=== PATIENT | female | born 1930 | race African-American/Black ===

== ENCOUNTER 2018-04-26 11:43 | Inpatient (IN) | payer MEDICARE, BC ==
--- NOTE | 2018-04-26 12:14 | CT ---
CT BRAIN WITHOUT CONTRAST: History: Level I stroke alert. Right sided weakness. Confusion. FINDINGS: Comparison is made with exam of 08-29-12. There are changes of encephalomalacia in the right frontal lobe and the left parietal lobe. Dystrophi c calcifications are seen in the right frontal lobe. The ventricular size is appropriate the basilar cisterns are patent. There are changes of cortical atrophy and chronic small ischemic disease. No hunter dence of acute infarct, hemorrhage, midline shift or abnormal extraaxial fluid collections are seen. The bony calvarium is intact. There is an airfluid level in the left maxillary sinus indicative of an acute maxillary sinusitis. IMPRESSION: 1. No CT evidence of acute intracranial process. 2. Findings discussed over the telephone with Emergency Department physician, Dr. Finch at 11:53 a .m. POS: [facility]
[2018-04-26 12:49] LABS: Lactate 3.44 mmol/L (0.50-2.20)
[2018-04-26 12:52] LABS: #Basophils 0.1 thou/uL (0.0-0.2); #Eosinphils 0.7 thou/uL (0.0-0.7); #Lymphocytes 1.9 thou/uL (1.20-3.40); #Monocytes 0.3 thou/uL (0.11-0.59); #Neutrophils 3.7 thou/uL (1.40-6.50); %Basophils 1.3 % (0.0-1.0); %Eosinophils 10.2 % (0.0-10.0); %Monocytes 4.4 % (0.0-10.0); Hemoglobin 12.9 g/dL (12.0-16.0); Mean Corpuscular HGB CONC 31.3 g/dL (32.0-36.0); Mean Corpuscular Hemoglobin 28.8 pg (27.0-31.0); Mean Corpuscular Volume 92.1 fL (78.0-98.0); Mean Platelet Volume 8.5 fL (7.4-10.4); Platelet Count 140 thou/uL (130-400); Red Blood Cell (RBC) Count 4.47 mill/uL (4.20-5.40); White Blood Cell (WBC) Count 6.7 thou/uL (4.8-10.8)
[2018-04-26 13:05] LABS: PTT 31.9 SEC (22.9-36.1)
[2018-04-26 13:06] LABS: INR-International Normal Ratio 1.1; Prothrombin Time 13.8 SEC (12.0-14.7)
[2018-04-26 13:14] LABS: ALT (SGPT) 10 U/L (8-55); AST (SGOT) 13 U/L (5-34); Albumin 3.2 g/dL (3.4-4.8); Alkaline Phosphatase 58 U/L (40-150); Anion Gap 13 mmol/L (10-20); BUN (Urea Nitrogen) 20 mg/dL (9.8-20.1); Bilirubin, Total 0.4 mg/dL (0.2-1.2); Calc. Creatinine Clearance 0 mL/min (70-130); Calcium 10.3 mg/dL (7.8-10.44); Carbon Dioxide 27 mmol/L (23-31); Chloride 104 mmol/L (98-107); Estimated GFR-MDRD 50; Globulin 3.2 g/dL (2.4-3.5); Glucose 104 mg/dL (83-110); Protein, Total 6.4 g/dL (6.0-8.3); Sodium 140 mmol/L (136-145)
[2018-04-26 13:15] LABS: Acetaminophen Less than 6.0 mcg/mL (10.0-30.0); Alcohol Less than 10 mg/dL (Less than 10); Salicylate Less than 8.0 mg/dL (15.0-30.0)
--- NOTE | 2018-04-26 13:16 | RAD ---
PORTABLE CHEST 1 VIEW: DATE: 04/26/2018. TIME: 1:06 p.m. History Cough. FINDINGS: The heart size is borderline. The aorta is tortuous. No focal areas of consolidation, pneumothorax, anant pulmonary edema, or pleural effusions are seen. There are degenerative changes in the spine. IMPRESSION: No acute process. POS: WOOD
[2018-04-26 13:27] LABS: Bilirubin Negative (Negative); Blood, Urine Trace (Negative); Clarity CLEAR (Clear); Glucose, Urine (Dipstick) Negative (Negative); Leukocyte Negative (Negative); Nitrite Negative (Negative); Protein, Urine (Dipstick) Negative (Neg-Trace); Specific Gravity, Urine 1.038 (1.002-1.036); Urobilinogen 0.2 mg/dL (0.2-1.0)
[2018-04-26 13:32] LABS: Bacteria/HPF None Seen HPF (None Seen); Hyaline Casts/LPF 0-3 HYALINE CAST LPF (0-3 Hyaline); Pathc Cast-AUWi Flag 0.43 (0-2.49); RBC/HPF 0-3 HPF (0-3); Squamous Epithelial 0-3 HPF (0-3); WBC/HPF 0-3 HPF (0-3)
--- NOTE | 2018-04-26 13:33 | CT ---
CT ANGIO HEAD WITH IV CONTRAST AND 3D POSTPROCESSING CT ANGIO NECK WITH IV CONTRAST AND 3D POSTPROCESSING: Date: 04/26/18 HISTORY: Level I stroke, right side weakness. FINDINGS: There is atherosclerotic plaque in the intra and extracranial carotid and vertebrobasilar systems. No aneurysm or major branch occlusion is seen in either side. There is 40% stenosis at the origin of th e right ICA and 45% stenosis at the origin of the left ICA. High grade stenosis is seen at the origin of the left vertebral artery. Low density thyroid nodules are noted. The visualized lung hinojosa are clear. An air fluid level is se en in the left maxillary sinus, consistent with acute left maxillary sinusitis. IMPRESSION: 1. Atherosclerotic vascular disease with 40% stenosis at the origin of the right ICA and 45% stenosi s at the origin of the left ICA, and high grade stenosis at the origin of the left vertebral artery. 2. No evidence of aneurysm or major branch occlusion. Discussed over the telephone with Dr. Perfecto Panchal at 1238 hours. CODE CR. POS: [facility]
[2018-04-26 13:34] LABS: Renal Epithelial None Seen HPF (0-3); Transitional Epithelial NONE SEEN HPF (0-3)
[2018-04-26 13:37] LABS: Amphetamine Not Detected (NotDetected); Barbiturates Screen Not Detected (NotDetected); Benzodiazepine Screen Not Detected (NotDetected); Cocaine Metabolite Screen Not Detected (NotDetected); Medtox Control Line Valid? VALID (VALID); Medtox Reader # READER 4; Methadone Not Detected (NotDetected); Methamphetamine Not Detected (NotDetected); Opiate Screen Not Detected (NotDetected); Oxycodone Screen Not Detected (NotDetected); Phencyclidine (PCP) Not Detected (NotDetected); THC/Cannabinoid Screen Not Detected (NotDetected); Tricyclic Screen Not Detected (NotDetected)
[2018-04-26] MEDS ORDERED: ISOVUE-370 76%-LOCM 1 ML ONE (15:04)
--- NOTE | 2018-04-26 15:26 | HP ---
PRIMARY CARE PHYSICIAN: Dr. Jonny Fountain at [facility]. REASON FOR ADMISSION: Acute encephalopathy. HISTORY OF PRESENT ILLNESS: An 87-year-old female, who has underlying history of hypertension, diabetes type 2, as well as previous history of CVA and brain aneurysm, who presented to emergency room with acute onset of altered mental status. The patient woke up this morning. At that time, she was able to do all her routine activity, but around 11 a.m., the patient all of suddenly started less responsive. The patient has caregiver and subsequently, the patient daughter was called and the patient was brought to emergency room for evaluation. Stroke alert was initiated in the emergency room. The patient had CT angiography of the head and neck and CT brain, which did not show any aneurysm or major branch occlusion. There was only carotid stenosis 40% in the right and 45% on the left. There was high-grade stenosis at the origin of the left vertebral artery. CT brain did not show any acute stroke. The patient was not a candidate for any kind of intervention in the emergency room. When I saw this patient, at that time, the patient was hypertensive. She was globally weak. She was resistant to opening her eyes. She was not following any command. She is not talking. The patient did not have any chest pain, palpitation, shortness of breath, UTI symptoms, constipation, diarrhea, abdominal pain. She did not have any headache. REVIEW OF SYSTEMS: All review of system tried to review with the patient, but unable to review at this point because of encephalopathy. PAST MEDICAL HISTORY: Hypertension, diabetes type 2, history of brain aneurysm, but unable to identify with CT angiography of the head and neck, dyslipidemia, and history of CVA. PAST SURGICAL HISTORY: Reviewed and negative. PAST PSYCHIATRIC HISTORY: Reviewed and negative. SOCIAL HISTORY: The patient lives at home. The patient has caregiver at home. No history of tobacco, alcohol, or illicit drug abuse. FAMILY HISTORY: No family history of coronary artery disease, stroke, or cancer. ALLERGIES: NO KNOWN DRUG ALLERGIES. CURRENT HOME MEDICATIONS: The patient's family member did not bring all her medication so unable to review at this point. EMERGENCY ROOM COURSE: Reviewed. PHYSICAL EXAMINATION: VITAL SIGNS: Currently blood pressure elevated to 197/87, pulse 74, respiratory rate 20, temperature 98.0, saturation 96% on room air. Weight 79.3 kg. GENERAL: The patient is currently unresponsive. Whenever I tried to open her eyes, she is making resistance with eye lid to close her eye. She is globally weak. She is not able to hold her any extremity in air. She is hypertensive. HEENT: Normocephalic, atraumatic. EYES; the patient is resisting to open her eyes, so unable to assess at this point. ENT; oropharynx within normal limits. Moist mucous membranes. No oral lesion. No pharyngeal erythema. No exudate. Face symmetrical without any facial droop. NECK: No JVD. No thyromegaly. No carotid bruit. No meningeal signs of irritation. LUNGS: Clear to auscultation without any rhonchi or rales. CARDIAC: S1 and S2 regular without any murmur. No gallop. No rub. ABDOMEN: Soft. Bowel sounds present. Nontender. Nondistended. No organomegaly. No mass. No suprapubic tenderness. BACK: Unremarkable. No CVA tenderness. EXTREMITIES: Upper extremities; passive movement of all joints are normal. Lower extremity; passive movement of all joints are normal. NEUROLOGIC: Unable to examine in detail neurologically, because the patient is unresponsive. She withdraws to painful stimuli in all four extremity. She is not able to keep any extremity in air. She is resisting to open her eyelid as well. SKIN: No skin rash. PSYCHIATRIC: Unable to assess at this point. SIGNIFICANT LABORATORY DATA: EKG showing normal sinus rhythm, nonspecific ST-T changes. CT of the head and neck angiography showing atherosclerosis of the right ICA of 40% and left ICA of 45%. High-grade stenosis at left vertebral artery origin. No aneurysm. CT brain based on my review, no acute intracranial process. Chest x-ray based on my review, no acute cardiopulmonary process. CBC; WBC 6.7, hemoglobin 12.9, platelets 140. INR 1.1. BMP; sodium 140, potassium 4.0, chloride 104, carbon dioxide 27, BUN 20, creatinine 1.23, glucose 104, calcium 10.3. LFT; AST 13, ALT 10, alkaline phosphatase 58, albumin 3.2. Troponin less than 0.010. Urinalysis unremarkable. Urine drug screen negative. Serum drug screen negative. ASSESSMENT AND PLAN: 1. Acute encephalopathy, etiology uncertain. The patient is hypertensive. Differential diagnosis is hypertensive encephalopathy. The patient does not have any focal deficit on one side or other, at this point, based on examination, but stroke cannot be entirely excluded. Current CT head and neck angiography and CT brain are not showing any acute process. The patient will need more investigation. The patient does have high-grade stenosis at the origin of left vertebral artery so, suspecting brainstem or posterior circulation stroke. At this point for more investigation, the patient will need admission. We will do Neurology consultation. MRI brain will be obtained. Echocardiography will be obtained. The patient will be treated with aspirin per rectally until the patient able to take p.o., and we will try to control her blood pressure around 170 to 180s. We will closely monitor on Stroke floor. We will do neuro check every 4 hours. Further investigation will defer to Neurology as well. If the patient's condition does not improve, then we will consider doing an EEG as well. 2. Diabetes, type 2. We will continue with insulin as per sliding scale protocol. Diabetic diet will be given when the patient is more alert and able to take p.o. We will also consult Speech Therapy for speech evaluation if needed, and we will also evaluate for bedside swallow. 3. Hypertension with hypertensive urgency. Currently, blood pressure is significantly elevated. We will try to control blood pressure around 170 to 180s. We will use p.r.n. hydralazine and labetalol. 4. Dyslipidemia. We will check lipid profile and start Lipitor 40 mg p.o. at bedtime. 5. Deep venous thrombosis prophylaxis. Lovenox 40 mg subcu daily. 6. GI prophylaxis. Pepcid 20 mg IV b.i.d. 7. Carotid stenosis. The patient does have mild carotid stenosis, which will require aspirin, statin therapy, and blood pressure control. CODE STATUS: The patient is full code. The patient's daughter is surrogate decision maker. DISPOSITION PLAN: Based on clinical course, we are expecting the patient's stay in the hospital more than two midnights. Plan of care discussed with the family member at bedside in detail. Job ID: [id number]
[2018-04-26 16:19] LABS: Lactic Acid 3.1 mmol/L (0.5-2.2)
[2018-04-26] MEDS ORDERED: Artificial Tear Sol 15 ML BOT EA EYE PRN (16:37)
[2018-04-26] MEDS ORDERED: Bisacodyl 10 MG SUPP PR PRN (16:37)
[2018-04-26] MEDS ORDERED: Dextrose 50% Abboject 50 ML SYRINGE SLOW IVP PRN (16:37)
[2018-04-26] MEDS ORDERED: Ondansetron PF 4 MG/2 ML Vial IVP PRN (16:37)
[2018-04-26] MEDS ORDERED: Acetaminophen 650 MG Suppository PR PRN (16:37)
[2018-04-26] MEDS ORDERED: Acetaminophen 325 MG TAB PO PRN (16:37)
[2018-04-26] MEDS ORDERED: Dextrose 5% in Water 1,000 ML IV PRN (16:37)
[2018-04-26] MEDS ORDERED: Eucerin (Mineral Oil/Petrolatum,White) 30 gm Jar TOP PRN (16:37)
[2018-04-26] MEDS ORDERED: Diabetic Tussin 200 MG/10 ML UDCUP PO PRN (16:37)
[2018-04-26] MEDS ORDERED: Ondansetron ODT 4 MG TAB PO PRN (16:37)
[2018-04-26] MEDS ORDERED: Loperamide HCl 2 MG CAP PO PRN (16:37)
[2018-04-26] MEDS ORDERED: Sodium Chloride 0.65% Nasal 44 ML BOT EA NARE PRN (16:37)
[2018-04-26] MEDS ORDERED: Bisacodyl 5 MG TAB PO PRN (16:37)
[2018-04-26] MEDS: hydrALAZINE 20 MG/ML VIAL SLOW IVP PRN (17:06)
[2018-04-26] MEDS: HumaLOG 300 UNITS/3 ML VIAL SC PRN ×2 (18:27→21:33)
[2018-04-26] MEDS: Labetalol HCl 100 MG/20 ML VIAL SLOW IVP PRN (20:13)
[2018-04-26] MEDS ORDERED: Atorvastatin Calcium 40 MG TAB PO SCH (21:00)
[2018-04-26] MEDS ORDERED: Famotidine/PF 20 mg/2ml Vial SLOW IVP SCH (21:00)
--- NOTE | 2018-04-26 21:07 | MRI ---
MRI OF BRAIN 04/26/18 PROVIDED CLINICAL HISTORY: Stroke. FINDINGS: Correlation is made with the CT examination dated 04/26/18. Prominent areas of encephalomalacia involving the right frontal and left temporo-occipital regions ar e again demonstrated with ex vacuo dilatation of the adjacent lateral ventricles in these regions. Th ere is extensive chronic microvascular white matter ischemic change predominantly involving the cereb ral hemispheric white matter. There is restricted diffusion seen involving the cerebellar vermis region. No additional restricted d iffusion is evident. Foci of signal loss on the gradient echo images within the region of restricted diffusion may reflect petechial hemorrhage. No additional intracranial hemorrhage is evident. Appropr iate flow voids are seen within the major intracranial vessels. The extracranial soft tissue and calv arial marrow signal demonstrate no acute abnormality. IMPRESSION: 1. Restricted diffusion compatible with recent infarction involving the cerebellum. Associated p etechial hemorrhage may be present. Follow up CT recommended. Discussed with patient's nurse, Lucia rosas, at 9:45 AM 04/27/2018. 2. Extensive chronic change as described. POS: [facility]
--- NOTE | 2018-04-26 21:15 | CON ---
DATE OF CONSULTATION: 04/26/2018 NEUROLOGY CONSULTATION CONSULTING PHYSICIAN: Hospitalist Service. IMPRESSION: Acute encephalopathy, possibly secondary to her hypertension. PLAN: Address blood pressure issues and monitor clinical course. HISTORY OF PRESENT ILLNESS: Ms. Mccauley is an 87-year-old black female with a known history of hypertension and diabetes. She usually gets around the house with the use of a walker. She can feed herself, but requires assistance with bathing and dressing. She has some degree of dementia, albeit the family plays it down a bit. She has had a tremor in her hands now for some time as well. She got up this morning and was not acting appropriate to her usual level of alertness. They called for an ambulance and she was brought into the ER. She had a CT and CTA done. There was some 40% stenosis of the carotids bilaterally, but nothing remarkable was found. Otherwise, her laboratory studies showed normal white count and chemistry panel other than mildly elevated blood glucose. Her urine was clear and her tox screen was also negative. She did not take any [id number] medications or sedatives last evening. PAST MEDICAL HISTORY: As listed above. ALLERGIES: NONE. SOCIAL HISTORY: No alcohol use. FAMILY HISTORY: Noncontributory. REVIEW OF SYSTEMS: Unobtainable. PHYSICAL EXAMINATION: VITAL SIGNS: Blood pressure in the 230/110 range. She is afebrile. HEENT: Pupils are 2 mm, nonreactive. Conjunctivae clear. Oropharynx is moist. NECK: Supple. EXTREMITIES: No cyanosis or edema. NEUROLOGIC: She will partially open her eyes and does some moaning, but I could not get any intelligible speech out of her and could not get her to follow any commands. Cranial nerve exam did not show any facial asymmetry or deviation of the eyes. Motor exam showed antigravity strength in both upper extremities. She had some rhythmic flexion-extension tremor in both hands, the tone appeared to be normal though. She localized to stimulation. Plantar responses were mute and gait is not testable. SUMMARY: This is an elderly lady who presents with alteration of mental status, so far there is no evidence of any infection or metabolic abnormalities. CT does not show any acute structural cause. The hypertension could be a factor. Otherwise, she might have suffered a stroke in a region that would not alter her physical exam, but other than the mental status, I would continue current management and reassess tomorrow. Job ID: [id number]
[2018-04-27 06:01] LABS: #Lymphocytes 1.2 thou/uL (1.20-3.40); #Monocytes 0.3 thou/uL (0.11-0.59); %Basophils 0.2 % (0.0-1.0); %Eosinophils 0.1 % (0.0-10.0); %Lymphocytes 7.9 % (21.0-51.0); %Monocytes 2.1 % (0.0-10.0); %Neutrophils 89.7 % (42.0-75.0); Hemoglobin 14.2 g/dL (12.0-16.0); Mean Corpuscular HGB CONC 31.8 g/dL (32.0-36.0); Mean Corpuscular Hemoglobin 29.1 pg (27.0-31.0); Mean Corpuscular Volume 91.3 fL (78.0-98.0); Mean Platelet Volume 8.9 fL (7.4-10.4); Platelet Count 162 thou/uL (130-400); RBC Distribution Width 13.1 % (11.5-14.5); Red Blood Cell (RBC) Count 4.89 mill/uL (4.20-5.40); White Blood Cell (WBC) Count 15.6 thou/uL (4.8-10.8)
[2018-04-27 06:33] LABS: BUN (Urea Nitrogen) 21 mg/dL (9.8-20.1); Calc. Creatinine Clearance 40 mL/min (70-130); Calcium 10.8 mg/dL (7.8-10.44); Carbon Dioxide 16 mmol/L (23-31); Cardiac Risk 7.6 (Less than 4.5); Chloride 106 mmol/L (98-107); Cholesterol 404 mg/dl (< 200 Desired); Estimated GFR-MDRD 49; Glucose 165 mg/dL (83-110); HDL Cholesterol 53 mg/dL (>60 Neg Risk); LDL Cholesterol, Calculated 320 mg/dL; Potassium 4.6 mmol/L (3.5-5.1); Sodium 136 mmol/L (136-145); Triglycerides 156 mg/dL (Less than 150)
[2018-04-27] MEDS: HumaLOG 300 UNITS/3 ML VIAL SC PRN (06:38)
[2018-04-27 06:46] LABS: Anion Gap 19 mmol/L (10-20)
[2018-04-27] MEDS ORDERED: Enoxaparin Sodium 40 MG/0.4 ML SYRINGE SC SCH (09:00)
[2018-04-27] MEDS ORDERED: Non-Formulary Item 1 EACH (Rosuvastatin Calcium [Crestor] 40 MG) PO SCH (09:00)
[2018-04-27] MEDS ORDERED: Aspirin 300 MG Suppository PR SCH (09:00)
[2018-04-27] MEDS ORDERED: Non-Formulary Item 1 EACH (Lisinopril [Zestril] 40 MG) PO SCH (09:00)
[2018-04-27] MEDS ORDERED: Aspirin 325 MG TAB PO SCH (09:00)
[2018-04-27] MEDS: Amlodipine 10 MG TAB PO SCH (09:06)
[2018-04-27] MEDS: metFORMIN 500 MG TAB PO SCH ×2 (09:06→19:00)
[2018-04-27] MEDS: Oxybutynin 5 MG TAB PO SCH (09:07)
[2018-04-27] MEDS: Lisinopril 20 MG TAB PO SCH (09:07)
[2018-04-27] MEDS: Metoprolol Tartrate 50 MG TAB PO SCH (09:07)
--- NOTE | 2018-04-27 11:10 | PDOC.PN ---
- Subjective Encounter Start Date: 04/27/18 Encounter Start Time: 07:30 -: old records requested/rev pt is keeping her eye closed, she randomly moves extremity, family present bedside - Objective Resuscitation Status - Order Detail: 04/26/18 14:41 Resuscitation Status Routine Resuscitation Status: FULL: Full Resuscitation MAR Reviewed: Yes Vital Signs & Weight: Vital Signs (12 hours) Temp Pulse Pulse Resp BP BP BP 04/27/18 09:57 164/77 H 04/27/18 09:07 185/84 H 04/27/18 09:06 102 H 04/27/18 08:03 91 188/90 H 04/27/18 07:38 99.0 F 102 H 16 198/98 H 04/27/18 03:57 98.4 F 100 156/86 H 04/27/18 03:05 156/86 H 04/27/18 00:13 97.8 F 93 16 181/89 H Pulse Ox 04/27/18 09:57 04/27/18 09:07 04/27/18 09:06 04/27/18 08:03 04/27/18 07:38 92 L 04/27/18 03:57 94 L 04/27/18 03:05 04/27/18 00:13 93 L Weight Weight 171 lb 4 oz Result Diagrams: 04/27/18 05:55 04/27/18 05:55 Additional Labs: Accuchecks 04/27/18 04/26/18 04/26/18 05:43 20:55 18:22 POC Glucose 181 H 255 H 268 H 04/26/18 11:48 POC Glucose 118 H Radiology Reviewed by me: Yes (MRI reviewed) EKG Reviewed by me: Yes (NSR) Phys Exam - Physical Examination Constitutional: NAD HEENT: moist MMs, sclera anicteric Neck: no JVD, supple Respiratory: no wheezing, no rales, no rhonchi Cardiovascular: RRR, no significant murmur, no rub Gastrointestinal: soft, non-tender, no distention, positive bowel sounds Musculoskeletal: no edema, pulses present Neurological: moves all 4 limbs Lymphatic: no nodes Psychiatric: normal affect Skin: no rash, normal turgor Dx/Plan (1) Cerebellar infarction Code(s): I63.9 - CEREBRAL INFARCTION, UNSPECIFIED Status: Acute (2) CKD (chronic kidney disease) stage 3, GFR 30-59 ml/min Code(s): N18.3 - CHRONIC KIDNEY DISEASE, STAGE 3 (MODERATE) Status: Chronic (3) Diabetes type 2, controlled Code(s): E11.9 - TYPE 2 DIABETES MELLITUS WITHOUT COMPLICATIONS Status: Chronic (4) Dyslipidemia Code(s): E78.5 - HYPERLIPIDEMIA, UNSPECIFIED Status: Chronic (5) Encephalopathy acute Code(s): G93.40 - ENCEPHALOPATHY, UNSPECIFIED Status: Acute (6) Hypertension Code(s): I10 - ESSENTIAL (PRIMARY) HYPERTENSION Status: Chronic - Plan cont current plan of care, plan discussed w/ family, PT/OT, social media specialist * home medication reconciled * if pt is not able to take by mouth, will consider dubhuff tube for nutrition and medication * will repeat CT brain again to rule out any H'ge * medication reviewed as below * symptomatic treatment * discussed with family * neurology recommendation noted. Review of Systems - Review of Systems Other: unable to review due to encephalopathy - Medications/Allergies Allergies/Adverse Reactions: Allergies Allergy/AdvReac Type Severity Reaction Status Date / Time No Known Drug Allergies Allergy Verified 04/26/18 17:42 Medications: Current Medications Acetaminophen (Tylenol) 650 mg PO Q4H PRN PRN Reason: Headache/Fever/Mild Pain (1-3) Acetaminophen (Tylenol) 650 mg ND Q4H PRN PRN Reason: Headache/Fever/Mild Pain (1-3) Amlodipine Besylate (Norvasc) 10 mg PO DAILY [facility] Last Admin: 04/27/18 09:06 Dose: Not Given Artificial Tears (Tears Renewed 15ml Bottle) 2 drop EA EYE PRN PRN PRN Reason: Dry Eyes Bisacodyl (Dulcolax) 10 mg ND DAILYPRN PRN PRN Reason: Constipation Bisacodyl (Dulcolax) 10 mg PO DAILYPRN PRN PRN Reason: Constipation Dextrose/Water (Dextrose 50%) 25 gm SLOW IVP PRN PRN PRN Reason: Hypoglycemia Famotidine (Pepcid) 20 mg SLOW IVP 2100 [facility] Last Admin: 04/26/18 20:11 Dose: 20 mg Glucagon (Glucagon) 1 mg IM PRN PRN PRN Reason: Hypoglycemia Guaifenesin (Robitussin Sf) 200 mg PO Q4H PRN PRN Reason: Cough Hydralazine HCl (Apresoline) 10 mg SLOW IVP Q4H PRN PRN Reason: SBP > 180 and HR < 70 Last Admin: 04/26/18 17:06 Dose: 10 mg Dextrose/Water (D5w) 1,000 mls @ 0 mls/hr IV .Q0M PRN PRN Reason: Hypoglycemia Insulin Human Lispro (Humalog) 0 units SC .BEDTIME SLIDING SC PRN PRN Reason: Bedtime Correctional Scale Last Admin: 04/26/18 21:33 Dose: 3 unit Insulin Human Lispro (Humalog) 0 units SC .MILD SLIDING SCALE PRN PRN Reason: Mild Correctional Scale Last Admin: 04/27/18 06:38 Dose: 2 unit Labetalol HCl (Normodyne) 20 mg SLOW IVP Q4H PRN PRN Reason: SBP > 180 and HR >/= 70 Last Admin: 04/26/18 20:13 Dose: 20 mg Lisinopril (Zestril) 40 mg PO DAILY [facility] Last Admin: 04/27/18 09:07 Dose: Not Given Loperamide HCl (Imodium) 2 mg PO PRN PRN PRN Reason: Diarrhea/Loose Stools Metformin HCl (Glucophage) 500 mg PO BID-[facility] Last Admin: 04/27/18 09:06 Dose: Not Given Metoprolol Tartrate (Lopressor) 50 mg PO DAILY [facility] Last Admin: 04/27/18 09:07 Dose: Not Given Mineral Oil/White Petrolatum (Eucerin Cream) 0 gm TOP BIDPRN PRN PRN Reason: Dry Skin Ondansetron HCl (Zofran Odt) 4 mg PO Q6H PRN PRN Reason: Nausea/Vomiting Ondansetron HCl (Zofran) 4 mg IVP Q6H PRN PRN Reason: Nausea/Vomiting Last Admin: 04/26/18 17:21 Dose: 4 mg Oxybutynin Chloride (Ditropan) 5 mg PO DAILY [facility] Last Admin: 04/27/18 09:07 Dose: Not Given Rosuvastatin Calcium (Crestor) 40 mg PO [facility] Sodium Chloride ([place] Nasal Aldrich 0.65%) 0 ml EA NARE QIDPRN PRN PRN Reason: Nasal Congestion Sodium Chloride (Flush - Normal Saline) 10 ml IVF PRN PRN PRN Reason: Saline Flush
[2018-04-27] MEDS: Labetalol HCl 100 MG/20 ML VIAL SLOW IVP PRN ×3 (12:35→21:21)
[2018-04-27] MEDS ORDERED: Labetalol HCl 100 MG/20 ML VIAL SLOW IVP SCH (13:00)
--- NOTE | 2018-04-27 13:30 | CT ---
CT BRAIN: Date: 04-27-18 Provided Clinical History: Comparison: CT brain 04-26-18 FINDINGS: There is interval development of parenchymal hematoma involving the central aspects of the cerebellum superiorly measuring approximately 5.1 cm. There is some effacement of the fourth ventricle with int raventricular extension not excluded into the fourth ventricle. The lateral ventricles are not change d in size. There is no shift of the midline structures. Additional significant interval change with r espect to the prior study is not apparent. IMPRESSION: 5.1 cm cerebellar parenchymal hematoma, new from the 04-26-18 CT examination. Findings indicted to Kendrick riggs, the patient's nurse, at 11:55 a.m. 04-27-18. Code CR POS: [facility]
[2018-04-27 13:32] LABS: INR-International Normal Ratio 1.1; PTT 33.4 SEC (22.9-36.1); Prothrombin Time 14.6 SEC (12.0-14.7)
--- NOTE | 2018-04-27 13:36 | PRG ---
DATE OF SERVICE: 04/27/2018 The patient is seen and examined again this afternoon at 12 p.m., entire family members were present at bedside and plan of care discussed with them as well. As the patient's condition was not improving since morning, we decided to repeat CT brain and second repeat CT scan this morning showing intracranial hemorrhage in cerebellum which we are suspecting from hypertension. This patient is not able to take any medication by mouth and she is still encephalopathic. We decided to discontinue aspirin rectally as well as aspirin and Lovenox for DVT prophylaxis. The patient's blood pressure was high at bedside and that is why labetalol IV push given. We decided to transfer this patient immediately to CCU and we are planning to start Cardene drip. Neurosurgery consultation placed and I spoke with Dr. Khan. He is going to review imaging and decide about any treatment options. Currently, next step is to transfer her to CCU. I spoke with the charge nurse in CCU to expedite bed assignment. Our goal is to keep systolic blood pressure around 120 given hemorrhagic CVA. Echocardiography was done earlier today and still result is pending. If the patient's condition does not improve, then we will consider putting Dobhoff tube for nutrition and medication. Plan of care extensively discussed with entire family members, who are upset and calmed down. Initially, family member requested to transfer her to [facility], but at this point for best interest of the patient, she is not safe enough to transfer there and she requires immediate transfer in care with Cardene drip. Most recent vital signs, blood pressure is 183/84. We will continue to give her labetalol until she gets bed in ICU. Job ID: [id number]
[2018-04-27 14:10] LABS: CKMB 3.6 ng/mL (0-6.6)
[2018-04-27] MEDS: niCARdipine HCl 25 MG in Sodium Chloride 0.9% 250 ML 240 ML IVPB SCH ×2 (14:38→20:06)
--- NOTE | 2018-04-27 20:16 | RAD ---
KUB: 04/27/18 HISTORY: Feeding tube placement. Dobhoff feeding tube is seen overlying the left upper quadrant and appears to be in the fundus region of the stomach on this view. Bowel gas pattern is nonobstructed. There are arthritic changes in the spine. IMPRESSION: Dobhoff feeding tube overlying the left upper quadrant of the abdomen. POS: [facility]
[2018-04-27] MEDS: Rosuvastatin 20 MG TAB PO SCH (21:21)
--- NOTE | 2018-04-27 22:14 | CON ---
DATE OF CONSULTATION: HISTORY OF PRESENT ILLNESS: Ms. Mccauley is an 87-year-old woman, who was admitted to [facility] yesterday, April 26 for sudden onset of altered mental status and right-sided weakness. CT scan initially performed showed no significant abnormality. An MRI was also then performed yesterday afternoon, which showed areas of restricted diffusion in the cerebellum likely indicating infarction and then a CT scan performed this morning revealed large bilateral hemispheric cerebellar hemorrhage likely representing conversion of infarct region. According to the Hospitalist Service and nursing staff, her mental status has not changed over the course of the last 24 hours, and for the CT scan from this morning, Neurosurgery was consulted at bedside. The patient is encephalopathic. She does not speak or answer questions nor make any specific noise that I can discern. She does localize pain quite briskly in all extremities and withdrawal to the lower extremities. She seems perhaps to follow commands with the left hand, though intermittently, more frequently does not follow than she does. Pupils are equal, round, and reactive to light. Extraocular movements are intact. It is important to note that on the CAT scan, she has ventriculomegaly, not just on today's exam, but on yesterday's as well. I had a lengthy discussion with the family at bedside that from her surgical perspective, it would not be recommended at least for this time for any posterior cerebellar decompression given the risks entailed in doing so particularly with her advanced age of 87. I did make the recommendation that it could become necessary in life, they could have an external ventricular drain placed; though at this time, it is unnecessary. Neurosurgery's plan would be one of observation and repeat imaging in the morning to evaluate any change in her ventricular size that may preclude placing this catheter. All questions were answered. I would like to see her systolic pressures maintained below 160 and head of bed elevated at 30 degrees. We will follow up in the morning. Job ID: [id number]
[2018-04-28] MEDS: niCARdipine HCl 25 MG in Sodium Chloride 0.9% 250 ML 240 ML IVPB SCH ×4 (01:24→19:54)
[2018-04-28] MEDS: Labetalol HCl 100 MG/20 ML VIAL SLOW IVP PRN (01:25)
[2018-04-28] MEDS: HumaLOG 300 UNITS/3 ML VIAL SC PRN (06:34)
[2018-04-28] MEDS: Amlodipine 10 MG TAB PO SCH (08:18)
[2018-04-28] MEDS: Pantoprazole 40 MG VIAL IVP SCH (08:18)
[2018-04-28] MEDS: Lisinopril 20 MG TAB PO SCH (08:18)
[2018-04-28] MEDS: Metoprolol Tartrate 50 MG TAB PO SCH (08:18)
[2018-04-28] MEDS: metFORMIN 500 MG TAB PO SCH ×2 (08:18→18:41)
[2018-04-28] MEDS: Oxybutynin 5 MG TAB PO SCH (08:37)
[2018-04-28] MEDS ORDERED: Morphine 4 MG/ML VIAL ONE (09:29)
[2018-04-28] MEDS ORDERED: Lidocaine 1% w/Epinephrine 1:100K 20 ML VIAL ONE (09:30)
--- NOTE | 2018-04-28 10:42 | CON ---
DATE OF CONSULTATION: ICU CONSULTATION NOTE HISTORY OF PRESENT ILLNESS: This is an 87-year-old female, who is basically unresponsive. There is a daughter at the bedside. She tells me there are 5 sisters. She was admitted on the for mental status change. Prior to that, she was relatively active. CT head showed a posterior circulation bleed. The patient has known history of previous brain aneurysms. Family is quite aware. She has had a previous hemorrhage in the past. Normally, she seeks care with [facility]. PAST MEDICAL HISTORY: Apparently pertinent mainly for hypertension. PAST SURGICAL HISTORY: Previous surgeries from what we are told is none. SOCIAL HISTORY: Alcohol, none. Tobacco, none. MEDICATIONS: Medicines from home includes; 1. Diabetic medication includes Glucophage 500 twice a day. 2. Crestor 40. 3. Lopressor 50 once a day. 4. Zestril 40 mg once a day. 5. Tessalon Perles. 6. Norvasc 10. 7. Aspirin. ALLERGIES: NONE. REVIEW OF SYSTEMS: Otherwise unobtainable. PHYSICAL EXAMINATION: VITAL SIGNS: Saturations are 98% on room air. She has a feeding tube in place. Pulse 88, blood pressure 134/80, and respiratory rate 22. CHEST: Reveals no wheezing or crackles. CARDIAC: Normal S1 and S2. No gallops HEENT: Pupils are 2 mm, equal. IMAGING STUDIES: CT brain 5 cm cerebellar hematoma. LABORATORY DATA: Otherwise, blood sugar 176. White count 15,000, H and H are unremarkable. Lytes were normal. Chemistry profile shows creatinine 1.25. IMPRESSION: 1. Posterior cerebellar hemorrhage. 2. Advanced age. 3. Diabetes. 4. Hypertension. PLAN: Discussed with the daughter, who is present at the bedside. She is comfortable making the patient a DNR. She is on a Cardene drip, we will try and switch over to oral medication and discontinue Cardene. She can probably be transferred out of the ICU. She is a DNR. Await input from Neurosurgery. Pulmonary Critical Care will follow while in the ICU. This is a one-half hour critical time. Job ID: [id number]
--- NOTE | 2018-04-28 10:52 | PRG ---
DATE OF SERVICE: SUBJECTIVE: Ms. Mccauley today appears to have had some progressive neurologic change. Her CT scan from this morning is still significantly worse with large hemorrhage now within the 4th ventricle. She also has increased ventriculomegaly. I discussed with the daughter at bedside and recommended emergent external ventricular drain placement. She consents and agrees. We will move forward. Job ID: [id number]
--- NOTE | 2018-04-28 11:11 | CT ---
"PRELIMINARY REPORT/[facility]/EMERGENTY AFTER-HOURS PROCEDURE CT Head Without Contrast EXAM DATE/TIME: 04/28/2018 4:15 AM CLINICAL HISTORY: 87 years old, female; Condition or disease; Other: F. U stroke; Increased AMS; Patient HX: Previous C T and mri on pacs; F. U stroke; Increased AMS TECHNIQUE: Axial computed tomography images of the head/brain without contrast. COMPARISON: CT Brain WO Con 04/26/2018 11:48 AM FINDINGS: Brain: Interval development of large, bilateral cerebellar hemorrhages, with surrounding edema, exten ding into and distending the 4th ventricle, cerebral aqueduct, and layering in the posterior horns of the lateral ventricles. There is also subrachnoid hemorrhage about the basilar cisterns and in bilateral parietal sulci. Right anterior frontal subdural collection demontrates acute hemorrhagic co mponent, new vs prior, measuring 11 mm in transverse dimension. Stable right frontal and left posteri or parietal foci of encephalomalacia. Ventricles: Progression of hydrocephalus vs prior exam. Bones/joints: No acute fracture. Sinuses: No acute sinusitis. Mastoid air cells: No mastoid effusion. Soft tissues: No acute pathology. IMPRESSION: Interval development of cerebellar, subdural, subarachnoid, and intraventricular hemorrhages vs prior . Progression of hydrocephalus vs prior exam. THIS REPORT CONTAINS FINDINGS THAT MAY BE CRITICAL TO PATIENT CARE. The findings were verbally commun icated via telephone conference with VASILE Hilton by Dr. Lopez on 04/28/2018 5:26 AM DATA CENTER PROJECT MANAGER. The results were acknowledged and understood. NUHA ALARCON | Preliminary Radiology Report Thank you for allowing us to participate in the care of your patient. Dictated and Authenticated by: Gale Lopez MD 04/28/2018 5:27 AM Central Time ([place] & [place]) FINAL INTERPRETATION CT HEAD WITHOUT CONTRAST: 04/28/2018 HISTORY: Intracranial hemorrhage. COMPARISON: 04/27/2018 TECHNIQUE: Axial CT imaging at 5 mm intervals, from the vertex through the skull base, without contrast. FINDINGS: The imaged paranasal sinuses/mastoid air cells are well aerated. No displaced calvarial fracture. There is a large intraaxial hemorrhage centered in the posterior midline cerebellum, with extension i nto the right and left cerebellar hemispheres, measuring approximately 6.2 cm in transverse dimension and 3.7 cm in AP dimension, increased in size when compared to 04/27/2018, at which time it measured approximately 5.1 x 2.5 cm. There appears to be direct extension of this hemorrhage into the fourth ventricle. There is significant new intraventricular hemorrhage within the posterior horns of the b ilateral lateral ventricles. There is interval development of worsening bilateral enlargement of the lateral ventricles and third ventricle, evidence of worsening/new obstructive hydrocephalus, and the re is new hemorrhage within the third ventricle. There is worsening periventricular hypodensity, sug gesting a degree of transependymal flow of CSF. There is worsening mass effect at the level of the foramen magnum, with ventral displacement of the b rainstem, consistent with worsening mass effect from the above described hemorrhage. New diffuse subarachnoid hemorrhage noted in the region of the temporal lobes bilaterally. IMPRESSION: Enlarging intraaxial hemorrhage centered in the midline cerebellum, with worsening/new intraventricul ar extension and mass effect on the brainstem at the foramen magnum with obstructive hydrocephalus an d transependymal flow of cerebrospinal fluid. New subarachnoid hemorrhage. I agree with the preliminary [facility] report. Results called to JENNIE Dunlap by the [facility] radiologist. This case was also discussed with [facility] by Dr. Macias on the morning of 04/28/2018. CODE CR POS: [facility]"
--- NOTE | 2018-04-28 12:02 | PRG ---
DATE OF SERVICE: 04/28/2018 SUBJECTIVE: Ms. Mccauley is an 87-year-old female admitted for weakness. She was on the stroke floor with a diagnosis of ischemic posterior fossa stroke. We were contacted yesterday by the Hospitalist Service for a change in mental status, where a subsequent CT scan revealed the presence of posterior fossa hemorrhage with intraventricular extension. She was transferred to the ICU. Today, she is evaluated both from an imaging and clinical perspective, both of which show a decline. She is far less responsive today. Her CT examination reveals a ventriculomegaly due to hydrocephalus. Ventriculostomy was discussed with the family and has been placed without incident. I had a lengthy discussion with the family members as well to discuss with them her current diagnosis as well as current plan of care with respect to the EVD. The plan at this point in time from a neurosurgical perspective will be ventriculostomy alone. She will need to continue to undergo risk stratification for stroke and appropriate blood pressure management through the Hospitalist and Critical Care Team. Job ID: [id number]
--- NOTE | 2018-04-28 13:15 | PDOC.PN ---
- Subjective Encounter Start Date: 04/28/18 Encounter Start Time: 09:00 -: Sluggish response to pain.. - Objective Resuscitation Status - Order Detail: 04/26/18 14:41 Resuscitation Status Routine Resuscitation Status: FULL: Full Resuscitation Vital Signs & Weight: Vital Signs (12 hours) Temp Pulse BP Pulse Ox 04/28/18 08:57 99 04/28/18 08:18 115 H 129/63 04/28/18 04:00 99 F 04/28/18 01:25 115 H 161/72 H Weight Admit Weight 171 lb 4 oz Weight 171 lb 15.369 oz Most Recent Monitor Data Heart Rate from ECG 80 NIBP 119/76 NIBP BP-Mean 90 Respiration from ECG 15 SpO2 96 I&O: 04/27/18 04/28/18 04/29/18 06:59 06:59 06:59 Intake Total 1020 Output Total 595 40 Balance 425 -40 Result Diagrams: 04/27/18 05:55 04/27/18 05:55 Additional Labs: Accuchecks 04/28/18 04/27/18 04/27/18 06:29 22:06 19:00 POC Glucose 176 H 163 H 175 H Phys Exam - Physical Examination Constitutional: NAD (Pupils equal with sluggish reaction to light..2mm) Neck: no JVD Respiratory: clear to auscultation bilateral Cardiovascular: RRR Gastrointestinal: soft Musculoskeletal: no edema Dx/Plan (1) Intracranial hemorrhage Code(s): I62.9 - NONTRAUMATIC INTRACRANIAL HEMORRHAGE, UNSPECIFIED Status: Acute Comment: Associated with infarct.. (2) CKD (chronic kidney disease) stage 3, GFR 30-59 ml/min Code(s): N18.3 - CHRONIC KIDNEY DISEASE, STAGE 3 (MODERATE) Status: Chronic (3) Diabetes type 2, controlled Code(s): E11.9 - TYPE 2 DIABETES MELLITUS WITHOUT COMPLICATIONS Status: Chronic (4) Hypertension Code(s): I10 - ESSENTIAL (PRIMARY) HYPERTENSION Status: Chronic - Plan -: Severe CVA with unresponsiveness. -: F/u with consultants. -: Continue supportive therapy.. * .
[2018-04-28] MEDS: Rosuvastatin 20 MG TAB PO SCH (19:54)
[2018-04-29] MEDS: HumaLOG 300 UNITS/3 ML VIAL SC PRN ×2 (06:24→17:27)
[2018-04-29] MEDS: metFORMIN 500 MG TAB PO SCH ×2 (07:34→17:26)
[2018-04-29] MEDS: Metoprolol Tartrate 50 MG TAB PO SCH (07:34)
[2018-04-29] MEDS: Pantoprazole 40 MG VIAL IVP SCH (07:35)
[2018-04-29] MEDS: Lisinopril 20 MG TAB PO SCH (07:35)
[2018-04-29] MEDS: Amlodipine 10 MG TAB PO SCH (07:35)
[2018-04-29 07:57] LABS: Anion Gap 12 mmol/L (10-20); BUN (Urea Nitrogen) 34 mg/dL (9.8-20.1); Calc. Creatinine Clearance 31 mL/min (70-130); Calcium 10.5 mg/dL (7.8-10.44); Carbon Dioxide 28 mmol/L (23-31); Chloride 106 mmol/L (98-107); Estimated GFR-MDRD 37; Glucose 172 mg/dL (83-110); Sodium 142 mmol/L (136-145)
--- NOTE | 2018-04-29 09:21 | PRG ---
DATE OF SERVICE: 04/29/2018 SUBJECTIVE: Jaycee Mccauley this morning remains markedly weak, but does move some of her right side. OBJECTIVE: VITAL SIGNS: Blood pressure 148/84, pulse 105, temperature is 98, respiratory rate 20, sats are 98%. CHEST: Decreased breath sounds. No wheezing. CARDIAC: Normal S1, S2. No gallops. ABDOMEN: No masses. LABORATORY DATA: Creatinine 1.59. She has a feeding tube in place going at 40 mL/hr. IMPRESSION: 1. Intracranial hemorrhage. ICPs about 2 to 3 as per the nurses. Hemorrhages in the cerebellum. 2. Posterior circulation hemorrhage. 3. Advanced age. 4. Hypertension. PLAN: Continue supportive care. Await input from Neurosurgery. Pulmonary will follow while on the ICU. PT, supportive care. Job ID: [id number]
--- NOTE | 2018-04-29 10:26 | RAD ---
PORTABLE FRONTAL CHEST RADIOGRAPH; Date: 04/29/18 COMPARISON: 08/29/12. HISTORY: Tachycardia. FINDINGS: There is a Dobbhoff feeding tube extending into the epigastric region to the left of midline. There i s no pneumothorax, pleural fluid, focal consolidation, or alveolar edema. IMPRESSION: Dobbhoff feeding tube in place. No focal consolidation or alveolar edema. POS: [facility]
[2018-04-29] MEDS: Oxybutynin 5 MG TAB PO SCH (10:39)
--- NOTE | 2018-04-29 10:41 | PDOC.PN ---
- Subjective Encounter Start Date: 04/29/18 Encounter Start Time: 10:50 -: More responsive today. - Objective Resuscitation Status - Order Detail: 04/26/18 14:41 Resuscitation Status Routine Resuscitation Status: FULL: Full Resuscitation Vital Signs & Weight: Vital Signs (12 hours) Temp 04/29/18 08:00 98.2 F 04/29/18 04:00 98.4 F 04/29/18 01:00 98.0 F 04/29/18 00:00 98.2 F Weight Admit Weight 171 lb 4 oz Weight 172 lb 13.478 oz Most Recent Monitor Data Heart Rate from ECG 97 NIBP 153/75 NIBP BP-Mean 101 Respiration from ECG 27 SpO2 100 I&O: 04/28/18 04/29/18 04/30/18 06:59 06:59 06:59 Intake Total 1020 1875 240 Output Total 595 588 116 Balance 425 1287 124 Result Diagrams: 04/27/18 05:55 04/29/18 07:29 Additional Labs: Accuchecks 04/29/18 04/28/18 04/28/18 06:23 22:05 17:31 POC Glucose 164 H 146 H 168 H Phys Exam - Physical Examination Constitutional: NAD Keeps eyes open, with upward gaze. Neck: no JVD Respiratory: no rales Cardiovascular: RRR Gastrointestinal: soft Musculoskeletal: no edema not foolowing commands. Neurological: moves all 4 limbs (R better than left..) Dx/Plan (1) Intracranial hemorrhage Code(s): I62.9 - NONTRAUMATIC INTRACRANIAL HEMORRHAGE, UNSPECIFIED Status: Acute Comment: Associated with infarct.. (2) CKD (chronic kidney disease) stage 3, GFR 30-59 ml/min Code(s): N18.3 - CHRONIC KIDNEY DISEASE, STAGE 3 (MODERATE) Status: Chronic Comment: serum creat slightly higher... (3) Diabetes type 2, controlled Code(s): E11.9 - TYPE 2 DIABETES MELLITUS WITHOUT COMPLICATIONS Status: Chronic (4) Hypertension Code(s): I10 - ESSENTIAL (PRIMARY) HYPERTENSION Status: Chronic Comment: BP satisfactory.. - Plan -: Looks better today. -: Continue current therapy. -: f/u with consultants... * .
--- NOTE | 2018-04-29 11:43 | PRG ---
DATE OF SERVICE: 04/29/2018 SUBJECTIVE: Ms. Mccauley this morning seems to be somewhat improved from her status yesterday. She opens her eyes spontaneously, looks around the room, and localizes to pain. EVD continues to put out slightly blood-tinged CSF. We will keep the setting at 5 cm of water for now. She has been tachycardiac overnight, but seems to be trending back downward. Now, she is in the low 90s. We will continue to follow. Job ID: [id number]
--- NOTE | 2018-04-29 12:04 | PRG ---
DATE OF SERVICE: 04/29/2018 Ms. Mccauley remains in the ICU. She has had a ventriculostomy placed yesterday, which remains open and is draining bloody CSF. Her exam has improved back to her baseline in the couple of days prior, which was basically one of encephalopathy. She does open her eyes, but does not follow commands. She does make spontaneous movements. The plan will be to keep her in the ICU with ongoing drainage. Physical Therapy was about to see her when I left. I did meet with the family and updated them at the time of my visit. Job ID: [id number]
[2018-04-29] MEDS: hydrALAZINE 20 MG/ML VIAL SLOW IVP PRN ×2 (12:16→21:21)
[2018-04-29] MEDS: CEFAZOLIN 2 GM/50 ML-DEXTROSE 2 GM in Premix Bag 1 BAG IVPB SCH ×2 (13:31→21:21)
[2018-04-29] MEDS ORDERED: CEFAZOLIN 2 GM in Sodium Chloride 0.9% 100 ML IVPB SCH (14:00)
[2018-04-29 16:25] LABS: CKMB 3.9 ng/mL (0-6.6)
[2018-04-29 19:26] LABS: CKMB 3.8 ng/mL (0-6.6)
[2018-04-29] MEDS: Rosuvastatin 20 MG TAB PO SCH (19:53)
[2018-04-30] MEDS: hydrALAZINE 20 MG/ML VIAL SLOW IVP PRN (03:03)
[2018-04-30] MEDS: CEFAZOLIN 2 GM/50 ML-DEXTROSE 2 GM in Premix Bag 1 BAG IVPB SCH ×3 (05:30→21:16)
[2018-04-30] MEDS: HumaLOG 300 UNITS/3 ML VIAL SC PRN ×2 (06:32→15:45)
[2018-04-30] MEDS: Pantoprazole 40 MG VIAL IVP SCH (08:42)
[2018-04-30] MEDS: Lisinopril 20 MG TAB PO SCH (08:43)
[2018-04-30] MEDS: Amlodipine 10 MG TAB PO SCH (08:43)
[2018-04-30] MEDS: Metoprolol Tartrate 50 MG TAB PO SCH (08:43)
[2018-04-30] MEDS: metFORMIN 500 MG TAB PO SCH ×2 (08:43→16:59)
[2018-04-30] MEDS: Oxybutynin 5 MG TAB PO SCH (09:49)
--- NOTE | 2018-04-30 11:07 | PRG ---
DATE OF SERVICE: 04/30/2018 SERVICE: Pulmonary Medicine. INTERVAL HISTORY: The patient is doing okay from respiratory standpoint. There has been no interval change to her condition neurologically or otherwise. She is tolerating feeds. EVD remains in place and continues to drain some fluid. She cannot provide any additional elements of the history and nursing reports no overnight events. PHYSICAL EXAMINATION: VITAL SIGNS: Afebrile. Pulse 105, blood pressure 125/73, respirations 19, saturation 100% on 28% T.Collar. GENERAL: The patient is intubated. HEENT: Normocephalic and atraumatic. Sclerae white. Conjunctivae pink. Oral mucosa is moist without lesions. EVD is in place. LUNGS: Decent air entry. Rhonchi and crackles are both present. No prolonged expiratory phase or wheezing is appreciated. HEART: Normal rate, regular. ABDOMEN: Soft, nontender, and nondistended. Bowel sounds are positive. MUSCULOSKELETAL: No cyanosis or clubbing. There is no pitting in the bilateral lower extremities. LABORATORY DATA: Blood sugar ranges from 109 to 183. Cardiac enzymes remain unremarkable. Urine drug screen is negative. ASSESSMENT: 1. Respiratory failure secondary to inability to protect airway. 2. Intracranial hemorrhage with intraventricular extension and subsequent hydrocephalus, status post external ventricular drain, postop day #2. DISCUSSION AND PLAN: We will continue supportive care including nutrition. Pulmonary/Critical Care will continue to follow along in this location. I will repeat some laboratories tomorrow morning. Job ID: [id number] MTDMarva
--- NOTE | 2018-04-30 11:33 | PRG ---
DATE OF SERVICE: 04/30/2018 SUBJECTIVE: Ms. Mccauley continues to recover in the ICU from posterior fossa hemorrhage with intraventricular extension and associated hydrocephalus. Her ventriculostomy drain is in place and draining. It is currently set at 5 cm of water. Urologically, she still has a poor exam, although it has improved back to where she was baseline just prior to development of hydrocephalus and her hemorrhage. The plan from neurosurgical perspective will be one of ongoing nonsurgical managements. We will leave the EVD in indefinitely until it is clear that the blood is clearing and normal spinal fluid dynamics have returned. Job ID: [id number]
--- NOTE | 2018-04-30 13:47 | PRG ---
DATE OF SERVICE: 04/30/2018 SUBJECTIVE: Ms. Mccauley this morning is relatively the same from a cardiac standpoint. She localizes pain. Opens her eyes spontaneously, but does not follow commands nor try to speak. Chest x-ray yesterday was negative for any significant concern. She has continued to fluctuate between tachycardia and normal sinus rhythm. Her EVD continues to put out on average 7 mL an hour. We will continue to leave this, if the settings are in place and will continue to follow on. Job ID: [id number]
[2018-04-30] MEDS: Rosuvastatin 20 MG TAB PO SCH (21:14)
[2018-04-30] MEDS ORDERED: Morphine 4 MG/ML VIAL ONE (22:18)
[2018-04-30] MEDS ORDERED: Morphine 4 MG/ML VIAL SLOW IVP SCH (23:15)
[2018-05-01] MEDS: HumaLOG 300 UNITS/3 ML VIAL SC PRN ×2 (03:57→11:47)
[2018-05-01] MEDS: CEFAZOLIN 2 GM/50 ML-DEXTROSE 2 GM in Premix Bag 1 BAG IVPB SCH ×3 (05:09→20:49)
[2018-05-01 06:21] LABS: Phosphorus 2.2 mg/dL (2.3-4.7)
[2018-05-01 06:24] LABS: Anion Gap 12 mmol/L (10-20); BUN (Urea Nitrogen) 41 mg/dL (9.8-20.1); Calc. Creatinine Clearance 33 mL/min (70-130); Calcium 10.3 mg/dL (7.8-10.44); Carbon Dioxide 30 mmol/L (23-31); Chloride 105 mmol/L (98-107); Estimated GFR-MDRD 39; Glucose 174 mg/dL (83-110); Magnesium 1.9 mg/dL (1.6-2.6); Potassium 4.3 mmol/L (3.5-5.1); Sodium 143 mmol/L (136-145)
[2018-05-01 06:31] LABS: Band 4 % (5-11); Hemoglobin 11.3 g/dL (12.0-16.0); Lymphocytes 13 % (21-51); MDiff Complete? YES; Mean Corpuscular HGB CONC 31.6 g/dL (32.0-36.0); Mean Corpuscular Volume 91.7 fL (78.0-98.0); Mean Platelet Volume 8.8 fL (7.4-10.4); Monocytes 7 % (0-10); Neutrophil 76 % (42-75); Platelet Count 150 thou/uL (130-400); Red Blood Cell (RBC) Count 3.92 mill/uL (4.20-5.40); White Blood Cell (WBC) Count 10.2 thou/uL (4.8-10.8)
--- NOTE | 2018-05-01 07:31 | PRG ---
DATE OF SERVICE: 05/01/2018 Ms. Mccauley this morning is still roughly the same from a cognitive standpoint. I have last night to replace her EVD as she had pulled that out. This is draining well. Her CSF is a little more blood tinged than it was yesterday. I updated the family with regard to prognosis and procedural update as well. Her glucose is 172 today. This will also need to be monitored and corrected. Job ID: [id number]
[2018-05-01] MEDS: metFORMIN 500 MG TAB PO SCH ×2 (08:03→17:44)
[2018-05-01] MEDS: Metoprolol Tartrate 50 MG TAB PO SCH (08:03)
[2018-05-01] MEDS: Amlodipine 10 MG TAB PO SCH (08:03)
[2018-05-01] MEDS: Pantoprazole 40 MG VIAL IVP SCH (08:03)
[2018-05-01] MEDS: Lisinopril 20 MG TAB PO SCH (08:03)
--- NOTE | 2018-05-01 08:30 | ULT ---
BILATERAL LOWER EXTREMITY VENOUS DOPPLER ULTRASOUND: Date: 05/01/18 HISTORY: Immobility. Bilateral lower extremity pain. TECHNIQUE: Quinones scale ultrasound with color flow and spectral Doppler imaging of the deep venous systems of the lower extremities was performed bilaterally. FINDINGS: There is good flow, compression, and augmentation noted in the common femoral, femoral, deep femoral, popliteal, posterior tibial, and greater saphenous veins on either side. IMPRESSION: No evidence of deep venous thrombosis in either lower extremity. POS: [facility]
[2018-05-01] MEDS: Scopolamine 1.5 mg/72 hour Patch TD SCH (11:43)
[2018-05-01] MEDS: Oxybutynin 5 MG TAB PO SCH (11:44)
--- NOTE | 2018-05-01 11:48 | CT ---
HEAD CT: Date: 05/01/18 COMPARISON: 04/28/18. HISTORY: Evaluate ventriculostomy tube. TECHNIQUE: Axial CT imaging obtained at 5 mm intervals from vertex through skull base without contrast. FINDINGS: A ventriculostomy tube is present inserted via a right frontal approach, with distal tip terminating in the region of the foramen of Monro on the right. There is pneumocephalus identified anterior to th e right frontal lobe and within the anterior aspect of bilateral frontal horns, right greater than le ft. There is an intra-axial hemorrhage in the posterior midline cerebellum measuring 5.1 cm in transverse dimension, decreased in size when compared to the 04/28/18 exam, at which time it measured 6.2 cm in transverse dimension. There is direct extension into the adjacent fourth ventricle, a stable finding . There is intraventricular blood within the body and posterior horn of the right lateral ventricle, an d there is hemorrhage seen within the posterior horn of the left lateral ventricle, similar when comp ared to prior imaging. The amount of blood in the right lateral ventricle has probably slightly incre ased when compared to the 04/28/18 exam. There are a few foci of subarachnoid hemorrhage in the poste rior right frontoparietal region, similar when compared to prior imaging. Lateral ventricles are enlarged, less so than on the prior examination. On the current examination, t he atrium of the left lateral ventricle measures 3.1 cm in transverse dimension, while previously дмитрий suring 3.4 cm. Atrium of left lateral ventricle measures approximately 2.6 cm transverse dimension, p reviously measuring approximately 3.3 cm. Imaged paranasal sinuses/mastoid air cells are well aerated. IMPRESSION: Interval placement of a right frontal ventriculostomy tube. Lateral ventricles remain dilated, but im proved when compared to the 04/28/18 examination. Prominent intra-axial hemorrhage in the posterior m idline cerebellum with intraventricular extension as above. POS: [facility]
--- NOTE | 2018-05-01 12:03 | EKG ---
Test Reason : AMS Blood Pressure : / mmHG Vent. Rate : 072 BPM Atrial Rate : 072 BPM P-R Int : 194 ms QRS Dur : 090 ms QT Int : 386 ms P-R-T Axes : 042 -48 001 degrees QTc Int : 422 ms Normal sinus rhythm Left axis deviation Inferior infarct , age undetermined Abnormal ECG Confirmed by GAY FRANZ D.O. ([id number]), production editor ALYSON GUTIÉRREZ ([id number]) on 05/01/2018 12:02:27 PM Referred By: Confirmed By:GAY FRANZ D.O.
--- NOTE | 2018-05-01 16:51 | PDOC.PN ---
- Subjective Encounter Start Date: 04/30/18 Encounter Start Time: 12:30 -: old records requested/rev follow up for ICH, CVA, acute hypoxemic respiratory failure, hyponatremia, DM2 not nonverbal. ROS not obtainable - Objective Resuscitation Status - Order Detail: 04/26/18 14:41 Resuscitation Status Routine Resuscitation Status: FULL: Full Resuscitation MAR Reviewed: Yes Vital Signs & Weight: Vital Signs (12 hours) Temp Pulse Pulse BP BP Pulse Ox Pulse Ox 05/01/18 16:00 98.2 F 05/01/18 11:00 97.8 F 05/01/18 08:45 99 105 H 149/75 H 156/80 H 98 05/01/18 08:25 97 05/01/18 07:00 98.3 F Pulse Ox 05/01/18 16:00 05/01/18 11:00 05/01/18 08:45 100 05/01/18 08:25 05/01/18 07:00 Weight Admit Weight 171 lb 4 oz Weight 172 lb 2.896 oz Most Recent Monitor Data Heart Rate from ECG 98 NIBP 140/79 NIBP BP-Mean 99 Respiration from ECG 23 SpO2 94 I&O: 04/30/18 05/01/18 05/02/18 06:59 06:59 06:59 Intake Total 2196 1470 290 Output Total 1423 1612 623 Balance 348 -142 -401 Result Diagrams: 05/02/18 04:27 05/05/18 05:06 Additional Labs: Accuchecks 05/01/18 05/01/18 04/30/18 11:48 03:55 21:50 POC Glucose 161 H 172 H 138 H Radiology Reviewed by me: Yes EKG Reviewed by me: Yes Phys Exam - Physical Examination Constitutional: NAD HEENT: PERRLA, sclera anicteric Neck: no nodes, no JVD, supple, full ROM coarse Bilateral BS tachy, regular Gastrointestinal: soft, non-tender, positive bowel sounds Musculoskeletal: no edema Skin: no rash, normal turgor, cap refill <2 seconds Dx/Plan (1) Cerebellar infarction Code(s): I63.9 - CEREBRAL INFARCTION, UNSPECIFIED Status: Acute (2) Encephalopathy acute Code(s): G93.40 - ENCEPHALOPATHY, UNSPECIFIED Status: Acute (3) Intracranial hemorrhage Code(s): I62.9 - NONTRAUMATIC INTRACRANIAL HEMORRHAGE, UNSPECIFIED Status: Acute Comment: Associated with infarct.. (4) CKD (chronic kidney disease) stage 3, GFR 30-59 ml/min Code(s): N18.3 - CHRONIC KIDNEY DISEASE, STAGE 3 (MODERATE) Status: Chronic (5) Diabetes type 2, controlled Code(s): E11.9 - TYPE 2 DIABETES MELLITUS WITHOUT COMPLICATIONS Status: Chronic (6) Dyslipidemia Code(s): E78.5 - HYPERLIPIDEMIA, UNSPECIFIED Status: Chronic (7) Hypertension Code(s): I10 - ESSENTIAL (PRIMARY) HYPERTENSION Status: Chronic - Plan * .
--- NOTE | 2018-05-01 16:52 | PDOC.PN ---
- Subjective Encounter Start Date: 05/01/18 Encounter Start Time: 11:35 -: non-verbal, old records requested/rev follow up for CVA, ICH nonverbal, no overnight events. ROS not obtianable - Objective Resuscitation Status - Order Detail: 04/26/18 14:41 Resuscitation Status Routine Resuscitation Status: FULL: Full Resuscitation MAR Reviewed: Yes Vital Signs & Weight: Vital Signs (12 hours) Temp Pulse Pulse BP BP Pulse Ox Pulse Ox 05/01/18 16:00 98.2 F 05/01/18 11:00 97.8 F 05/01/18 08:45 99 105 H 149/75 H 156/80 H 98 05/01/18 08:25 97 05/01/18 07:00 98.3 F Pulse Ox 05/01/18 16:00 05/01/18 11:00 05/01/18 08:45 100 05/01/18 08:25 05/01/18 07:00 Weight Admit Weight 171 lb 4 oz Weight 172 lb 2.896 oz Most Recent Monitor Data Heart Rate from ECG 98 NIBP 140/79 NIBP BP-Mean 99 Respiration from ECG 23 SpO2 94 I&O: 04/30/18 05/01/18 05/02/18 06:59 06:59 06:59 Intake Total 2196 1470 290 Output Total 1422 161 623 Balance 773 -142 -191 Result Diagrams: 05/02/18 04:27 05/05/18 05:06 Additional Labs: Accuchecks 05/01/18 05/01/18 04/30/18 11:48 03:55 21:50 POC Glucose 161 H 172 H 138 H Phys Exam - Physical Examination Constitutional: NAD HEENT: PERRLA, moist MMs, sclera anicteric, oral pharynx no lesions Neck: no nodes, no JVD, supple, full ROM Respiratory: no wheezing Cardiovascular: RRR, no significant murmur, no rub Gastrointestinal: soft, non-tender, no distention, positive bowel sounds Musculoskeletal: no edema Lymphatic: no nodes Skin: no rash, normal turgor, cap refill <2 seconds Dx/Plan (1) Cerebellar infarction Code(s): I63.9 - CEREBRAL INFARCTION, UNSPECIFIED Status: Acute (2) Encephalopathy acute Code(s): G93.40 - ENCEPHALOPATHY, UNSPECIFIED Status: Acute (3) Intracranial hemorrhage Code(s): I62.9 - NONTRAUMATIC INTRACRANIAL HEMORRHAGE, UNSPECIFIED Status: Acute Comment: Associated with infarct.. (4) CKD (chronic kidney disease) stage 3, GFR 30-59 ml/min Code(s): N18.3 - CHRONIC KIDNEY DISEASE, STAGE 3 (MODERATE) Status: Chronic (5) Diabetes type 2, controlled Code(s): E11.9 - TYPE 2 DIABETES MELLITUS WITHOUT COMPLICATIONS Status: Chronic Qualifiers: Diabetes mellitus middle or intermediate school principal insulin use: unspecified middle or intermediate school principal insulin use status Diabetes mellitus complication status: with unspecified complications Qualified Code(s): E11.8 - Type 2 diabetes mellitus with unspecified complications (6) Dyslipidemia Code(s): E78.5 - HYPERLIPIDEMIA, UNSPECIFIED Status: Chronic (7) Hypertension Code(s): I10 - ESSENTIAL (PRIMARY) HYPERTENSION Status: Chronic - Plan cont current plan of care * . per neurosurgery, will meet with fmaily when they arrive. NSVT overnight, need to discuss code status
--- NOTE | 2018-05-01 17:22 | PRG ---
DATE OF SERVICE: 05/01/2018 SUBJECTIVE: Ms. Mccauley remains essentially unchanged. I reviewed her initial CT and a followup CT done today. She still has dilated lateral ventricles. They are improved. She has a ventriculostomy tube in place. Her posterior midline cerebellar hemorrhage is still seen. This is a very large area of hemorrhage. She is afebrile. Heart rate 79, blood pressure 153/72, respiratory rate 13. She requires frequent suctioning to clear her oral secretions. I talked to her daughter about mechanical ventilation, tracheostomy, PEG, etc., and the daughter was shaking her head, but she did not want those things, but also stated that she had to talk to her sister. At this point in time, she is protecting her airway with suctioning and careful attention by the nurses. Her prognosis is obviously at 87 years of age given the extent of the hemorrhage is dismal as I have explained to the daughter, but the daughter says jimbo has recovered from a stroke before, some hoping she will again. OBJECTIVE: LUNGS: Clear once she is suctioned. HEART: Regular rhythm. S1 and S2 are normal. ABDOMEN: Soft. EXTREMITIES: Without edema. LABORATORY DATA: White count 10.2, hemoglobin 11.3, platelets 150,000. Sodium 143, potassium 4.3, chloride 105, bicarb 30, BUN 41, creatinine 1.52. Creatinine is 1.59 on the . IMPRESSION: Large cerebellar hemorrhage. PLAN: We will continue with supportive care, which includes ventricular drainage, nutritional support and suctioning. Scopolamine patch was added today. Job ID: [id number]
[2018-05-01] MEDS: Rosuvastatin 20 MG TAB PO SCH (20:49)
[2018-05-01 21:28] LABS: Actual Bicarbonate (HCO3a) 31.5 mEq/L (22-28); Base Excess (BEa) 6.5 mEq/L (-2.0 to +3.0); CO2 Tension 46.4 mmHg (35.0-45.0); Calcium, Ionized 1.37 mmol/L (1.12-1.30); Carboxyhemoglobin (COHb) 1.2 gm% (0.0-3.0); Hemoglobin (Hb) 13.2 g/dL (12.0-16.0); O2 Tension (PaO2) 56.3 mmHg (> 60.0); Potassium - ABG Lab 4.47 mmol/L (3.70-5.30); Puncture Site LBR; pH, Arterial 7.45 (7.35-7.45)
[2018-05-01] MEDS ORDERED: Magnesium 2 GM/50 ML 2 GM in Premix Bag 1 BAG IVPB SCH (23:45)
[2018-05-02 04:35] LABS: #Lymphocytes 1.2 thou/uL (1.20-3.40); #Monocytes 1.3 thou/uL (0.11-0.59); #Neutrophils 11.8 thou/uL (1.40-6.50); %Basophils 0.2 % (0.0-1.0); %Eosinophils 0.3 % (0.0-10.0); %Lymphocytes 8.6 % (21.0-51.0); %Monocytes 9.1 % (0.0-10.0); %Neutrophils 81.9 % (42.0-75.0); Hemoglobin 13.7 g/dL (12.0-16.0); Mean Corpuscular HGB CONC 31.1 g/dL (32.0-36.0); Mean Corpuscular Hemoglobin 28.7 pg (27.0-31.0); Mean Corpuscular Volume 92.5 fL (78.0-98.0); Mean Platelet Volume 9.1 fL (7.4-10.4); Platelet Count 162 thou/uL (130-400); Red Blood Cell (RBC) Count 4.76 mill/uL (4.20-5.40); White Blood Cell (WBC) Count 14.4 thou/uL (4.8-10.8)
[2018-05-02 04:47] LABS: Phosphorus 2.1 mg/dL (2.3-4.7)
[2018-05-02 04:48] LABS: Anion Gap 17 mmol/L (10-20); BUN (Urea Nitrogen) 38 mg/dL (9.8-20.1); Calc. Creatinine Clearance 37 mL/min (70-130); Calcium 11.1 mg/dL (7.8-10.44); Carbon Dioxide 25 mmol/L (23-31); Chloride 104 mmol/L (98-107); Estimated GFR-MDRD 45; Glucose 192 mg/dL (83-110); Magnesium 2.6 mg/dL (1.6-2.6); Sodium 141 mmol/L (136-145)
[2018-05-02] MEDS: CEFAZOLIN 2 GM/50 ML-DEXTROSE 2 GM in Premix Bag 1 BAG IVPB SCH ×3 (05:14→21:15)
[2018-05-02] MEDS: metFORMIN 500 MG TAB PO SCH ×2 (07:59→17:03)
[2018-05-02] MEDS: Pantoprazole 40 MG VIAL IVP SCH (08:55)
[2018-05-02] MEDS: Lisinopril 20 MG TAB PO SCH (08:55)
[2018-05-02] MEDS: Amlodipine 10 MG TAB PO SCH (08:56)
[2018-05-02] MEDS: Metoprolol Tartrate 50 MG TAB PO SCH (08:56)
[2018-05-02] MEDS: Oxybutynin 5 MG TAB PO SCH (08:59)
[2018-05-02 10:00] LABS: Bilirubin Negative (Negative); Blood, Urine Moderate (Negative); Clarity CLEAR (Clear); Glucose, Urine (Dipstick) Negative (Negative); Leukocyte Small (Negative); Nitrite Negative (Negative); Protein, Urine (Dipstick) 30 mg/dL (Neg-Trace); Specific Gravity, Urine 1.022 (1.002-1.036); Urobilinogen 0.2 mg/dL (0.2-1.0)
--- NOTE | 2018-05-02 10:34 | PQF ---
CLINICAL DOCUMENTATION IMPROVEMENT CLARIFICATION FORM: ICD-10 Updated PLEASE DO AN ADDENDUM TO THE PROGRESS NOTE WITH ANY DOCUMENTATION UPDATES OR ADDITIONS AND CARRY THROUGH TO DC SUMMARY. THANK YOU. DATE: 05/02/18; 05/03/18 ATTN: Ahmet SCHNEIDER Please exercise your independent, professional judgment in responding to the clarification form. Clinical indicators are provided on the bottom of this form for your review Please check appropriate box(s): [x ] Compression of brain [ ] Cerebral edema / Vasogenic edema [ ] Other diagnosis [ ] Unable to determine In addition, please specify: Present on Admission (POA): [ ] Yes [ ] No [ x ] Unable to determine For continuity of documentation, please document condition throughout progress notes and discharge summary. Thank You. CLINICAL INDICATORS - SIGNS / SYMPTOMS / LABS PN 04/27 (Toy) pts condition was not improving since morning second repeat CT scan showing intracranial hemorrhage in cerebellum which we are suspecting from hypertension. The pt is not able to take any medication by mouth and she is still encephalopathic CT BRAIN 04/28: Interval development of large, bilateral cerebellar hemorrhages , with surrounding edema, extending into and distending the 4th ventricle, cerebral aqueduct, and layering in the posterior horns of the lateral ventricles. PN 04/28 (White): Her CT examination reveals a ventriculomegaly due to hydrocephalus. PN 04/29: (Hemal) seems to be somewhat improved from her status yesterday. She opens her eyes spontaneously, looks around the room, and localizes to pain. RISKS: H&P 04/26: Hx of HTN, DM 2. Previous hx of CVA & brain aneurysm. PN 04/28 (White): Her CT examination reveals a ventriculomegaly due to hydrocephalus. TREATMENT: PN 04/27: Transfer to CCU start cardene drip Neurosurgery Consult PN 04/28: Ventriculostomy Placed ICP monitoring CT Brain 04/26, 04/27, 04/28, 05/01 Thank you, Magda (This form is maintained as a part of the permanent medical record) 2014 [employer]. All Rights Reserved Magda Monzon RN, BSN [email or web address] Office: [phone] [facility]
[2018-05-02] MEDS: HumaLOG 300 UNITS/3 ML VIAL SC PRN ×2 (10:47→17:48)
--- NOTE | 2018-05-02 11:03 | PRG ---
DATE OF SERVICE: 05/02/2018 SUBJECTIVE: Ms. Amin EVD remains patent and draining anywhere from 3 to 7 an hour. We had the nursing staff dropped a drain in the floor yesterday and drained 30 mL off x1. This never seemed to really improve her neurologic status. She is lying in the bed with her eyes open. Unfortunately, she slipped into ventricular tachycardia for a short run overnight and was placed on BiPAP. She is still tachycardic this morning. It seems that her hemoglobin and hematocrit had dropped precipitously yesterday and have rebounded today. I am not sure what her volume status is. We will check a UA to check for any concern for volume depletion. Her vital signs other than the tachycardia appear normal. She had a drop in her O2 saturation overnight, which is also part of the reason that BiPAP was started. From a Neurosurgery perspective, there is still no other intervention other than the EVD stay in place Job ID: [id number]
--- NOTE | 2018-05-02 13:20 | PRG ---
DATE OF SERVICE: 05/02/2018 SERVICE: Pulmonary Medicine. INTERVAL HISTORY: The patient is doing fine from respiratory standpoint. She is on BiPAP. I cannot get any additional elements of the history from her. Nursing reports no overnight events. OBJECTIVE: VITAL SIGNS: Afebrile, pulse 104, blood pressure 151/87, respirations 13, and saturation 97% on room air. GENERAL: The patient is awake and alert, in no apparent distress. LUNGS: Decent air entry. There is no prolonged expiratory phase. Rhonchi are present. She does not cough. There are no crackles. HEART: Normal rate and regular. ABDOMEN: Soft, nontender, and nondistended. Bowel sounds are positive. MUSCULOSKELETAL: No cyanosis or clubbing. No pitting in the bilateral lower extremities. LABORATORY DATA: WBC 14.4, hemoglobin 13.7, platelets 162,000. pH 7.45, pCO2 of 46, pO2 of 56. Creatinine 1.34 and gently downtrending. Basic metabolic profile is otherwise unremarkable. Sodium is 141 and downtrending. Urinalysis and urine drug screen are unremarkable. IMAGING DATA: CT of the brain demonstrates interval placement of a right frontal ventriculostomy tube. Lateral ventricles remain dilated, but it is improved compared to prior examination. ASSESSMENT: 1. Respiratory failure secondary to inability to protect airway. 2. Intracranial hemorrhage with intraventricular extension and subsequent hydrocephalus, status post external ventricular drain, postop day #4. DISCUSSION AND PLAN: We will continue supportive measures. She is tolerating tube feeds for the time being. We will give her breaks off the BiPAP 3 times daily and increase as tolerated. I will give her a laboratory holiday in the morning once again. Pulmonary/Critical Care will continue to follow along, but the chance of a good neurologic recovery in this 87-year-old is essentially nonexistent. Job ID: [id number]
[2018-05-02] MEDS: Rosuvastatin 20 MG TAB PO SCH (21:15)
[2018-05-03] MEDS: CEFAZOLIN 2 GM/50 ML-DEXTROSE 2 GM in Premix Bag 1 BAG IVPB SCH ×3 (05:44→22:18)
[2018-05-03] MEDS: metFORMIN 500 MG TAB PO SCH (08:25)
[2018-05-03] MEDS: Metoprolol Tartrate 50 MG TAB PO SCH (08:30)
[2018-05-03] MEDS: Amlodipine 10 MG TAB PO SCH (08:31)
[2018-05-03] MEDS: Lisinopril 20 MG TAB PO SCH (08:31)
[2018-05-03] MEDS: Pantoprazole 40 MG VIAL IVP SCH (08:32)
[2018-05-03] MEDS: Oxybutynin 5 MG TAB PO SCH (08:32)
--- NOTE | 2018-05-03 09:41 | PRG ---
DATE OF SERVICE: 05/03/2018 SUBJECTIVE: She remains in the ICU with intracerebral drain. OBJECTIVE: VITAL SIGNS: Blood pressure is 167/89, pulse 109, temperature is 99, sats are 80%. CHEST: Decreased breath sounds without any wheezing. CARDIAC: Normal S1 and S2. No gallops. ABDOMEN: Soft without any masses. NEUROLOGIC: She is unresponsive. IMPRESSION: 1. Intracerebral hemorrhage. 2. Cerebrovascular accident. 3. Diabetes. 4. Hypertension. 5. Encephalopathy. PLAN: Comfort care. Once the intracerebral drain has been removed, she will be transferred out of the ICU. Pulmonary/Critical Care will follow while in the ICU. She is do not intubate at this stage. Job ID: [id number]
[2018-05-03] MEDS: Labetalol HCl 100 MG/20 ML VIAL SLOW IVP PRN (10:08)
[2018-05-03] MEDS: HumaLOG 300 UNITS/3 ML VIAL SC PRN ×2 (10:36→18:15)
--- NOTE | 2018-05-03 10:51 | PDOC.PN ---
- Subjective Encounter Start Date: 05/03/18 (f/u stroke with intracranial bleed) Encounter Start Time: 10:49 Subjective: Discussed with nurse - no change in neuro status - some spontaneous -: movement of arms, no movement to commands. - Objective Resuscitation Status - Order Detail: 05/02/18 12:59 Resuscitation Status Routine Resuscitation Status: PRTL: Cardiac only Discussed with: clover Oliva. Additional comments: No intubation Vital Signs & Weight: Vital Signs (12 hours) Temp Pulse Pulse BP BP Pulse Ox Pulse Ox 05/03/18 10:08 82 177/86 H 05/03/18 09:14 75 144/73 H 95 05/03/18 08:31 104 H 167/89 H 05/03/18 05:00 99.3 F 05/03/18 03:00 98.9 F 05/03/18 01:00 99.2 F 05/02/18 23:51 98 Weight Admit Weight 171 lb 4 oz Weight 171 lb 8.314 oz Most Recent Monitor Data Heart Rate from ECG 80 NIBP 177/86 NIBP BP-Mean 116 Respiration from ECG 20 SpO2 100 I&O: 05/02/18 05/03/18 05/04/18 06:59 06:59 06:59 Intake Total 1557 1522 Output Total 1673 908 Balance -116 614 Result Diagrams: 05/02/18 04:27 05/02/18 04:27 Additional Labs: Accuchecks 05/03/18 05/02/18 05/02/18 03:55 23:23 17:47 POC Glucose 177 H 157 H 203 H 05/02/18 10:38 POC Glucose 221 H EKG Reviewed by me: Yes (occ pvc, sinus 70's, review of past 5 beats tachyarrhythmia) Phys Exam - Physical Examination Constitutional: NAD no movement with exam, snoring sounds, NAD Respiratory: no wheezing, no rales, no rhonchi Cardiovascular: RRR, no significant murmur Gastrointestinal: soft, positive bowel sounds Musculoskeletal: no edema no spontaneous movement Dx/Plan (1) Intracranial hemorrhage Code(s): I62.9 - NONTRAUMATIC INTRACRANIAL HEMORRHAGE, UNSPECIFIED Status: Acute Comment: Associated with infarct.. (2) CKD (chronic kidney disease) stage 3, GFR 30-59 ml/min Code(s): N18.3 - CHRONIC KIDNEY DISEASE, STAGE 3 (MODERATE) Status: Chronic (3) Diabetes type 2, controlled Code(s): E11.9 - TYPE 2 DIABETES MELLITUS WITHOUT COMPLICATIONS Status: Chronic (4) Dyslipidemia Code(s): E78.5 - HYPERLIPIDEMIA, UNSPECIFIED Status: Chronic (5) Hypertension Code(s): I10 - ESSENTIAL (PRIMARY) HYPERTENSION Status: Chronic - Plan * blood sugars today in range - plan for range of 140-180 * bp's - has prn labetalol and hydralazine, and scheduled amlodipine and metoprolol * pvc's and brief arrhythmia - had echo earlier in this hospitalization. Will order electrolytes for next blood draw - pt with a lab holiday today * * dvt prophy -scds * gi prophy - famotidine * code status - no intubation * * Overall prognosis poor - discussed with Beto - that pts status has not changed. They have questions for Neurosurgery today. They say it's in God' s hands and they and pt have spiritual support of their pastors. * * No change to current care.
[2018-05-03] MEDS: Rosuvastatin 20 MG TAB PO SCH (22:18)
--- NOTE | 2018-05-03 23:30 | PRG ---
DATE OF SERVICE: 05/03/2018 SUBJECTIVE: Ms. Mccauley again today this afternoon, more or less unchanged. I discussed with the daughter at the bedside that we would like to see some more improvement by now perhaps because of her age this is the reason for slow recovery. I feel that the likelihood of her making at home is extraordinarily low and that we may either to go to LTAC with the chance that she may not make it out of the hospital. I have been discussing this, the daughter was talking to the patient and she actually makes 2 separate attempt to turn, look at them and attempt to speak. Her speech is garbled and has no discernible more information, but this certainly does appear to be engaged attempt at speech, which I think is an immense change in her neurologic status. Neurosurgery's plan still is no change EVD, left over at 5 cm water, we will continue look for improved neurologic condition. Job ID: [id number]
[2018-05-04] MEDS: CEFAZOLIN 2 GM/50 ML-DEXTROSE 2 GM in Premix Bag 1 BAG IVPB SCH ×3 (05:39→22:02)
[2018-05-04] MEDS: HumaLOG 300 UNITS/3 ML VIAL SC PRN ×3 (05:40→16:36)
[2018-05-04 05:45] LABS: ALT (SGPT) Less than 7 U/L (8-55); AST (SGOT) 15 U/L (5-34); Alkaline Phosphatase 73 U/L (40-150); Anion Gap 15 mmol/L (10-20); BUN (Urea Nitrogen) 46 mg/dL (9.8-20.1); Bilirubin, Total 0.2 mg/dL (0.2-1.2); Calc. Creatinine Clearance 33 mL/min (70-130); Calcium 10.7 mg/dL (7.8-10.44); Carbon Dioxide 31 mmol/L (23-31); Chloride 101 mmol/L (98-107); Estimated GFR-MDRD 40; Globulin 3.5 g/dL (2.4-3.5); Glucose 199 mg/dL (83-110); Magnesium 2.1 mg/dL (1.6-2.6); Protein, Total 6.5 g/dL (6.0-8.3); Sodium 142 mmol/L (136-145)
[2018-05-04 05:48] LABS: Phosphorus 1.9 mg/dL (2.3-4.7)
[2018-05-04] MEDS: Pantoprazole 40 MG VIAL IVP SCH (08:32)
[2018-05-04] MEDS: Metoprolol Tartrate 50 MG TAB PO SCH (08:33)
[2018-05-04] MEDS: Amlodipine 10 MG TAB PO SCH (08:33)
[2018-05-04] MEDS: Lisinopril 20 MG TAB PO SCH (08:33)
--- NOTE | 2018-05-04 09:01 | PRG ---
DATE OF SERVICE: 05/04/2018 SUBJECTIVE: An 87-year-old female, who remains in the ICU, with drain access for intracerebral hemorrhage. OBJECTIVE: VITAL SIGNS: Pulse 109, blood pressure 150/75, saturations , respirations 24. Cerebral infarct. Aphasic. Does move only the left side. CHEST: Decreased breath sounds. No wheezing. CARDIAC: Normal S1 and S2. No gallops. ABDOMEN: No masses. LABORATORY DATA: Creatinine is 1.49. Lytes are normal. IMPRESSION: Cerebral hemorrhage, advanced age, respiratory failure, and renal failure. PLAN: She is to stay in the ICU until the ventriculostomy tube is in place. Comfort care, nutrition, PT, supportive care. One-half hour of Critical Care time spent. Job ID: [id number]
--- NOTE | 2018-05-04 10:16 | PRG ---
DATE OF SERVICE: 05/03/2018 SUBJECTIVE: Ms. Mccauley continues to recover in the ICU from a posterior fossa ischemic stroke with hemorrhagic conversion and intraventricular extension of blood. She has a ventriculostomy tube in place, which has been exchanged once secondary to her removing it. She continues to drain at 5 cm of water. Most recent CT exam revealed persistent ventriculomegaly with a persistent degree of blood product within the ventricular system and posterior fossa. She has made very slow gradual improvement in her neurologic exam over the past 24 to 48 hours. She does open her eyes spontaneously. It is clear that she is trying to speak as well. She does make spontaneous movements with her extremities. I believe due to Ms. Mccauley's age and the extent of her brain injury, her recovery is going to be very slow. We are not at a point now to believe it is feasible to remove the drain or consider placement of a ventriculoperitoneal shunt. We will continue to drain until blood products clear and her ventricular size improves. I have discussed this with the family members and they are aware of the plan from a neurosurgical perspective. I do not foresee a need for any neurosurgical operative intervention in the near future. Job ID: [id number]
[2018-05-04] MEDS: Scopolamine 1.5 mg/72 hour Patch TD SCH (10:23)
--- NOTE | 2018-05-04 10:29 | PRG ---
DATE OF SERVICE: 05/04/2018 SUBJECTIVE: Ms. Mccauley is now on the 8th day of her hospital stay. Yesterday, she did make some attempts at speech. This morning, she is more somnolent. Her EVD continues to put out on an average of 7 to 10 mL per hour. Systolic pressures remain in the 130s to 140s, which are still appropriate. Nutrition is being administered via NG tube. recommendations have not changed, and we will continue Job ID: [id number]
[2018-05-04] MEDS ORDERED: CCU Electrolyte Replacement 1 EACH IVPB ONE (16:05)
[2018-05-04] MEDS ORDERED: Potassium Phosphate 9 MMOL in Sodium Chloride 0.9% 100 ML IVPB PRN (16:07)
[2018-05-04] MEDS ORDERED: Potassium Phosphate 12 MMOL in Sodium Chloride 0.9% 250 ML 250 ML IV PRN (16:07)
[2018-05-04] MEDS ORDERED: Potassium Chloride 40 MEQ in Premix Bag 1 BAG IVPB PRN (16:07)
[2018-05-04] MEDS ORDERED: Potassium Chloride 40 MEQ in Sodium Chloride 0.9% 250 ML 250 ML IVPB PRN (16:07)
[2018-05-04] MEDS ORDERED: Magnesium Oxide 400 MG TAB PO PRN ×2 (16:07)
[2018-05-04] MEDS ORDERED: Magnesium 2 GM/NS 0.9% 100 ML 2 GM in Premix Bag 1 BAG IVPB PRN (16:07)
[2018-05-04] MEDS ORDERED: CCU ELECTROLYTE REPLACEMENT PROTOCOL FS PRN (16:07)
[2018-05-04] MEDS ORDERED: Potassium Phosphate 15 MMOL in Sodium Chloride 0.9% 250 ML 250 ML IV PRN (16:07)
[2018-05-04] MEDS ORDERED: Potassium Chloride 20 MEQ TAB PO PRN (16:07)
--- NOTE | 2018-05-04 16:15 | PDOC.PN ---
- Subjective Encounter Start Date: 05/04/18 (f/u diabetes) Encounter Start Time: 16:14 Subjective: Pt asleep, not responsive to exam -: no overnight events - Objective Resuscitation Status - Order Detail: 05/02/18 12:59 Resuscitation Status Routine Resuscitation Status: PRTL: Cardiac only Discussed with: Pat & clover Syed. Additional comments: No intubation Vital Signs & Weight: Vital Signs (12 hours) Temp Pulse Pulse Pulse BP BP BP 05/04/18 12:00 98.3 F 05/04/18 11:00 91 91 146/78 H 142/74 H 05/04/18 08:33 108 H 131/71 05/04/18 08:00 97.8 F 05/04/18 06:41 Pulse Ox Pulse Ox Pulse Ox 05/04/18 12:00 05/04/18 11:00 100 100 05/04/18 08:33 05/04/18 08:00 100 05/04/18 06:41 99 Weight Admit Weight 171 lb 4 oz Weight 167 lb 15.876 oz Most Recent Monitor Data Heart Rate from ECG 99 NIBP 161/74 NIBP BP-Mean 103 Respiration from ECG 16 SpO2 96 I&O: 05/03/18 05/04/18 05/05/18 06:59 06:59 06:59 Intake Total 1522 1459 50 Output Total 908 1472 822 Balance 614 -13 -772 Result Diagrams: 05/02/18 04:27 05/04/18 05:12 Additional Labs: Accuchecks 05/04/18 05/04/18 05/03/18 10:36 04:46 21:35 POC Glucose 213 H 181 H 128 H 05/03/18 17:41 POC Glucose 174 H EKG Reviewed by me: Yes (sinus 100's, episodes of tachyarrhythmia) Phys Exam - Physical Examination Constitutional: NAD Respiratory: no wheezing, no rales, no rhonchi Cardiovascular: RRR 2/6 KOFI Gastrointestinal: soft, no distention, positive bowel sounds Musculoskeletal: no edema no spontaneous movement Deviation from normal: unable to assess Dx/Plan (1) Intracranial hemorrhage Code(s): I62.9 - NONTRAUMATIC INTRACRANIAL HEMORRHAGE, UNSPECIFIED Status: Acute Comment: Associated with infarct.. (2) CKD (chronic kidney disease) stage 3, GFR 30-59 ml/min Code(s): N18.3 - CHRONIC KIDNEY DISEASE, STAGE 3 (MODERATE) Status: Chronic (3) Diabetes type 2, controlled Code(s): E11.9 - TYPE 2 DIABETES MELLITUS WITHOUT COMPLICATIONS Status: Chronic (4) Dyslipidemia Code(s): E78.5 - HYPERLIPIDEMIA, UNSPECIFIED Status: Chronic (5) Hypertension Code(s): I10 - ESSENTIAL (PRIMARY) HYPERTENSION Status: Chronic (6) Hypophosphatemia Code(s): E83.39 - OTHER DISORDERS OF PHOSPHORUS METABOLISM Status: Acute - Plan * blood sugars elevated - start long acting insulin tonight * bp's - has prn labetalol and hydralazine, and scheduled amlodipine and metoprolol * tachycardia - Cardiology following * electrolyte protocol/replace phosphate * no BM in a few days - add scheduled colace * * dvt prophy -scds * gi prophy - famotidine * code status - no intubation * * Pt remains at high risk of decompensation in current condition. .
[2018-05-04] MEDS: Rosuvastatin 20 MG TAB PO SCH (20:13)
[2018-05-04] MEDS: Docusate Sodium 100 MG/10 ML UDCUP PO SCH (20:13)
[2018-05-04] MEDS: Insulin Glargine 10 UNITS in Pre-Filled Syringe 1 EACH SC SCH (21:56)
[2018-05-05] MEDS: CEFAZOLIN 2 GM/50 ML-DEXTROSE 2 GM in Premix Bag 1 BAG IVPB SCH ×3 (05:30→22:02)
[2018-05-05 05:41] LABS: ALT (SGPT) Less than 7 U/L (8-55); AST (SGOT) 17 U/L (5-34); Albumin 3.3 g/dL (3.4-4.8); Alkaline Phosphatase 82 U/L (40-150); Anion Gap 16 mmol/L (10-20); BUN (Urea Nitrogen) 44 mg/dL (9.8-20.1); Bilirubin, Total 0.2 mg/dL (0.2-1.2); Calc. Creatinine Clearance 29 mL/min (70-130); Calcium 10.8 mg/dL (7.8-10.44); Carbon Dioxide 29 mmol/L (23-31); Chloride 100 mmol/L (98-107); Estimated GFR-MDRD 35; Globulin 3.8 g/dL (2.4-3.5); Glucose 237 mg/dL (83-110); Protein, Total 7.1 g/dL (6.0-8.3); Sodium 140 mmol/L (136-145)
--- NOTE | 2018-05-05 08:22 | PDOC.PN ---
- Subjective Encounter Start Date: 05/02/18 Encounter Start Time: 09:00 -: non-verbal NSVT overnight, family not at bedside to discuss code status. no other events, no fevers, no chills ROS not obtainable - Objective Resuscitation Status - Order Detail: 05/02/18 12:59 Resuscitation Status Routine Resuscitation Status: PRTL: Cardiac only Discussed with: Pat & clover Syed. Additional comments: No intubation MAR Reviewed: Yes Vital Signs & Weight: Vital Signs (12 hours) Temp 05/05/18 04:00 98.6 F 05/05/18 00:00 98.7 F Weight Admit Weight 171 lb 4 oz Weight 168 lb 6.931 oz Most Recent Monitor Data Heart Rate from ECG 119 NIBP 138/75 NIBP BP-Mean 96 Respiration from ECG 26 SpO2 100 I&O: 05/04/18 05/05/18 05/06/18 06:59 06:59 06:59 Intake Total 1459 2397 Output Total 1472 2609 Balance -13 -212 Result Diagrams: 05/02/18 04:27 05/05/18 05:06 Additional Labs: Accuchecks 05/04/18 05/04/18 05/04/18 22:15 16:21 10:36 POC Glucose 185 H 198 H 213 H Radiology Reviewed by me: Yes Phys Exam - Physical Examination Constitutional: NAD HEENT: moist MMs, sclera anicteric, oral pharynx no lesions Neck: no nodes, full ROM coarse bilateral breath sounds Cardiovascular: RRR, no significant murmur Gastrointestinal: soft, no distention, positive bowel sounds Musculoskeletal: no edema Lymphatic: no nodes Skin: no rash, normal turgor, cap refill <2 seconds Dx/Plan (1) Cerebellar infarction Code(s): I63.9 - CEREBRAL INFARCTION, UNSPECIFIED Status: Acute (2) Encephalopathy acute Code(s): G93.40 - ENCEPHALOPATHY, UNSPECIFIED Status: Acute (3) Intracranial hemorrhage Code(s): I62.9 - NONTRAUMATIC INTRACRANIAL HEMORRHAGE, UNSPECIFIED Status: Acute Comment: Associated with infarct.. (4) CKD (chronic kidney disease) stage 3, GFR 30-59 ml/min Code(s): N18.3 - CHRONIC KIDNEY DISEASE, STAGE 3 (MODERATE) Status: Chronic (5) Diabetes type 2, controlled Code(s): E11.9 - TYPE 2 DIABETES MELLITUS WITHOUT COMPLICATIONS Status: Chronic Qualifiers: Diabetes mellitus senior living insulin use: unspecified subpoena server insulin use status Diabetes mellitus complication status: with unspecified complications Qualified Code(s): E11.8 - Type 2 diabetes mellitus with unspecified complications (6) Dyslipidemia Code(s): E78.5 - HYPERLIPIDEMIA, UNSPECIFIED Status: Chronic (7) Hypertension Code(s): I10 - ESSENTIAL (PRIMARY) HYPERTENSION Status: Chronic Qualifiers: Hypertension type: essential hypertension Qualified Code(s): I10 - Essential (primary) hypertension - Plan cont current plan of care, social director * . will meet with family today. follow up on neuro recs
--- NOTE | 2018-05-05 08:25 | PDOC.PN ---
- Subjective Encounter Start Date: 05/05/18 Encounter Start Time: 08:24 -: non-verbal, old records requested/rev taking case back over. no new events, pt uncomfortable with suctioning, nonverbal. Daughter at bedside. no newquestions ROS not obtianable - Objective Resuscitation Status - Order Detail: 05/02/18 12:59 Resuscitation Status Routine Resuscitation Status: PRTL: Cardiac only Discussed with: Pat & clover Syed. Additional comments: No intubation MAR Reviewed: Yes Vital Signs & Weight: Vital Signs (12 hours) Temp 05/05/18 04:00 98.6 F 05/05/18 00:00 98.7 F Weight Admit Weight 171 lb 4 oz Weight 168 lb 6.931 oz Most Recent Monitor Data Heart Rate from ECG 119 NIBP 138/75 NIBP BP-Mean 96 Respiration from ECG 26 SpO2 100 I&O: 05/04/18 05/05/18 05/06/18 06:59 06:59 06:59 Intake Total 1459 2397 Output Total 1472 2609 Balance -13 -212 Result Diagrams: 05/02/18 04:27 05/05/18 05:06 Additional Labs: Accuchecks 05/04/18 05/04/18 05/04/18 22:15 16:21 10:36 POC Glucose 185 H 198 H 213 H Radiology Reviewed by me: Yes Phys Exam - Physical Examination Constitutional: NAD HEENT: PERRLA, moist MMs, sclera anicteric, oral pharynx no lesions Neck: no nodes, no JVD, supple, full ROM coase crackle sin both bases, upper gurgling Cardiovascular: RRR, no rub Gastrointestinal: soft, non-tender, no distention, positive bowel sounds Musculoskeletal: no edema Lymphatic: no nodes Skin: no rash, normal turgor, cap refill <2 seconds Dx/Plan (1) Cerebellar infarction Code(s): I63.9 - CEREBRAL INFARCTION, UNSPECIFIED Status: Acute (2) Encephalopathy acute Code(s): G93.40 - ENCEPHALOPATHY, UNSPECIFIED Status: Acute (3) Intracranial hemorrhage Code(s): I62.9 - NONTRAUMATIC INTRACRANIAL HEMORRHAGE, UNSPECIFIED Status: Acute Comment: Associated with infarct.. (4) CKD (chronic kidney disease) stage 3, GFR 30-59 ml/min Code(s): N18.3 - CHRONIC KIDNEY DISEASE, STAGE 3 (MODERATE) Status: Chronic (5) Diabetes type 2, controlled Code(s): E11.9 - TYPE 2 DIABETES MELLITUS WITHOUT COMPLICATIONS Status: Chronic Qualifiers: Diabetes mellitus snf insulin use: unspecified termite helper insulin use status Diabetes mellitus complication status: with unspecified complications Qualified Code(s): E11.8 - Type 2 diabetes mellitus with unspecified complications (6) Dyslipidemia Code(s): E78.5 - HYPERLIPIDEMIA, UNSPECIFIED Status: Chronic (7) Hypertension Code(s): I10 - ESSENTIAL (PRIMARY) HYPERTENSION Status: Chronic Qualifiers: Hypertension type: essential hypertension Qualified Code(s): I10 - Essential (primary) hypertension - Plan cont current plan of care, plan discussed w/ family, protective services social worker * . stay the course. daughter st bedside updated
[2018-05-05] MEDS: Lisinopril 20 MG TAB PO SCH (08:26)
[2018-05-05] MEDS: Docusate Sodium 100 MG/10 ML UDCUP PO SCH ×2 (08:27→21:48)
[2018-05-05] MEDS: Pantoprazole 40 MG VIAL IVP SCH (08:27)
[2018-05-05] MEDS: Amlodipine 10 MG TAB PO SCH (08:27)
[2018-05-05] MEDS: Metoprolol Tartrate 50 MG TAB PO SCH (08:28)
[2018-05-05] MEDS: HumaLOG 300 UNITS/3 ML VIAL SC PRN ×4 (11:12→21:49)
[2018-05-05] MEDS ORDERED: Lactated Ringer's 500 ML IV SCH (11:30)
--- NOTE | 2018-05-05 11:58 | PRG ---
DATE OF SERVICE: 05/05/2018 SERVICE: Pulmonary Medicine. INTERVAL HISTORY: The patient is doing fine from respiratory standpoint. She cannot provide any additional elements of the history. There are no significant neurologic events overnight. She continues to have a draining fluid from her external ventricular drain. It is clearing up a little bit, but still has some blood tinge to it. PHYSICAL EXAMINATION: VITAL SIGNS: Afebrile. Pulse 91, blood pressure 148/75, respirations 17, and saturation 100% on 2 L nasal cannula. GENERAL: The patient is awake, alert, and is somnolent. No apparent distress. LUNGS: Excellent air entry. There is no prolonged expiratory phase or wheezing present. HEART: Normal rate, regular. ABDOMEN: Soft, nontender, and nondistended. Bowel sounds are positive. MUSCULOSKELETAL: No cyanosis or clubbing. There is no pitting in the bilateral lower extremities. GENITOURINARY: Grove catheter in place. LABORATORY DATA: Creatinine is up-trending to 1.66. Basic metabolic profile is otherwise unremarkable. Calcium 10.8, ALT less than 7. Basic metabolic profile and liver function studies are otherwise unremarkable. ASSESSMENT: 1. Intraparenchymal hemorrhage with intraventricular extension and subsequent hydrocephalus, status post external ventricular drain, postop day 7. 2. Static encephalopathy. 3. Acute kidney injury. DISCUSSION AND PLAN: We will continue supportive care. We will continue our family discussions about end of life. At this point, the patient has a neurologic event that she is unlikely to make a significant/meaningful recovery from. Supportive measures will be continued. The patient has an appearance of a little dehydration. As such, half-normal saline will be introduced at 75 an hour for the next 24 hours. Laboratories will be repeated tomorrow morning. Job ID: [id number] [facility]
[2018-05-05] MEDS: Sodium Chloride 0.45% 1,000 ML IV SCH (13:04)
[2018-05-05] MEDS ORDERED: Acetaminophen 1,000 MG in Premix Bag 1 BAG IVPB PRN (21:10)
[2018-05-05] MEDS ORDERED: Acetaminophen 1,000 MG in Premix Bag 1 BAG IVPB SCH (21:15)
[2018-05-05] MEDS: Rosuvastatin 20 MG TAB PO SCH (21:48)
[2018-05-05] MEDS: Insulin Glargine 10 UNITS in Pre-Filled Syringe 1 EACH SC SCH (21:50)
[2018-05-05 22:31] LABS: Bilirubin Negative (Negative); Blood, Urine Small (Negative); Clarity CLEAR (Clear); Glucose, Urine (Dipstick) 100 mg/dL (Negative); Leukocyte Negative (Negative); Nitrite Negative (Negative); Protein, Urine (Dipstick) 100 mg/dL (Neg-Trace); Specific Gravity, Urine 1.013 (1.002-1.036); Urobilinogen 0.2 mg/dL (0.2-1.0)
[2018-05-05 22:33] LABS: Bacteria/HPF None Seen HPF (None Seen); Hyaline Casts/LPF 0-3 HYALINE CAST LPF (0-3 Hyaline); Pathc Cast-AUWi Flag 0.14 (0-2.49); Squamous Epithelial 0-3 HPF (0-3); WBC/HPF 0-3 HPF (0-3)
[2018-05-06] MEDS: Sodium Chloride 0.45% 1,000 ML IV SCH ×2 (00:11→13:07)
[2018-05-06] MEDS: HumaLOG 300 UNITS/3 ML VIAL SC PRN ×5 (06:19→21:43)
[2018-05-06] MEDS: CEFAZOLIN 2 GM/50 ML-DEXTROSE 2 GM in Premix Bag 1 BAG IVPB SCH ×3 (06:20→21:36)
[2018-05-06] MEDS: Metoprolol Tartrate 50 MG TAB PO SCH (08:19)
[2018-05-06] MEDS: Amlodipine 10 MG TAB PO SCH (08:19)
[2018-05-06] MEDS: Pantoprazole 40 MG VIAL IVP SCH (08:19)
[2018-05-06] MEDS: Docusate Sodium 100 MG/10 ML UDCUP PO SCH ×2 (08:19→21:36)
[2018-05-06] MEDS: Lisinopril 20 MG TAB PO SCH (08:19)
[2018-05-06] MEDS: Labetalol HCl 100 MG/20 ML VIAL SLOW IVP PRN (10:06)
--- NOTE | 2018-05-06 12:10 | PRG ---
DATE OF SERVICE: 05/06/2018 Ms. Mccauley eye opens but does not follow commands. Her clinical examination is essentially stable over the past couple of days. Her EVD continues to drain bloody fluid but is functional at 5 cm of water. I discussed the situation with Ms. Mccauley's 2 daughters. Given her age and the extent of the stroke and hemorrhagic conversion, I am not optimistic for meaningful recovery of function. They expressed understanding, but it was not clear to me their future desire regarding aggressiveness of care. We will continue with the ventricular drainage and have no further surgical recommendations at this time. Job ID: [id number]
--- NOTE | 2018-05-06 13:00 | PRG ---
DATE OF SERVICE: 05/06/2018 SERVICE: Pulmonary Medicine. INTERVAL HISTORY: The patient has no interval events overnight. The patient cannot provide any additional elements of the history. She did have a fever. Panculture was sent. PHYSICAL EXAMINATION: VITAL SIGNS: Afebrile currently with a T-max of 102.9 last night. Pulse 88, blood pressure 138/92, respirations 23, and saturation 98% on 2 L nasal cannula. GENERAL: The patient is awake and alert. That being said, she is nonverbal, does not attend. HEENT: Normocephalic and atraumatic. Sclerae white. Conjunctivae pink. Oral mucosa is moist without lesions. LUNGS: Decent air entry. There is no prolonged expiratory phase or wheezing present. HEART: Tachycardic. Regular. ABDOMEN: Soft, nontender, and nondistended. Bowel sounds are positive. MUSCULOSKELETAL: No cyanosis or clubbing. No pitting in the bilateral lower extremities. NEUROLOGIC: Grossly nonfocal. LABORATORY DATA: Blood cultures x2 are negative to date. ASSESSMENT: 1. Intraparenchymal hemorrhage with intraventricular extension and subsequent hydrocephalus, status post external ventricular drain, postop day 8. 2. Static encephalopathy. 3. Systemic inflammatory response, new onset. DISCUSSION AND PLAN: Since she is hemodynamically stable, we will continue to observe her. We are awaiting the culture results. I will add a chest x-ray, and urinalysis. Pulmonary Critical Care will continue to follow while she remains in this location. The likelihood of a meaningful existence is essentially not existence in this 87-year-old. That being said, the family is requesting that we continue our current management strategies. She is a firm DNI, but okay with other interventions. Job ID: [id number]
--- NOTE | 2018-05-06 14:39 | RAD ---
PORTABLE AP CHEST XRAY: DATE: 05/06/2018. HISTORY: Sepsis, subjective fever for a day. Shortness of breath. COMPARISON: 04/29/2018. FINDINGS: Dobbhoff feeding tube remains in place with tip overlying the region of the body of the stomach. Car diac silhouette is magnified by projection. Thoracic aorta is ectatic and tortuous but also magnifie d due to patient rotation. Pulmonary vasculature is within normal limits and the lungs are clear. Th ere has been no significant interval change from the prior exam. IMPRESSION: 1. No acute cardiopulmonary process. 2. Dobbhoff feeding tube noted in place with the tip overlying the expected location of the body of the stomach. POS: WOOD
[2018-05-06] MEDS: Rosuvastatin 20 MG TAB PO SCH (21:36)
[2018-05-06] MEDS: Insulin Glargine 10 UNITS in Pre-Filled Syringe 1 EACH SC SCH (21:44)
[2018-05-07] MEDS: HumaLOG 300 UNITS/3 ML VIAL SC PRN ×5 (04:49→22:27)
[2018-05-07] MEDS: CEFAZOLIN 2 GM/50 ML-DEXTROSE 2 GM in Premix Bag 1 BAG IVPB SCH ×3 (05:51→22:18)
[2018-05-07 06:02] LABS: Anion Gap 15 mmol/L (10-20); BUN (Urea Nitrogen) 41 mg/dL (9.8-20.1); Calc. Creatinine Clearance 37 mL/min (70-130); Calcium 9.7 mg/dL (7.8-10.44); Carbon Dioxide 25 mmol/L (23-31); Chloride 98 mmol/L (98-107); Estimated GFR-MDRD 46; Glucose 223 mg/dL (83-110); Phosphorus 2.9 mg/dL (2.3-4.7); Potassium 4.8 mmol/L (3.5-5.1); Sodium 133 mmol/L (136-145)
[2018-05-07 06:05] LABS: Band 2 % (5-11); Eosinophils 2 % (0-10); Lymphocytes 15 % (21-51); MDiff Complete? YES; Mean Corpuscular HGB CONC 31.7 g/dL (32.0-36.0); Mean Corpuscular Hemoglobin 28.7 pg (27.0-31.0); Mean Corpuscular Volume 90.6 fL (78.0-98.0); Mean Platelet Volume 9.3 fL (7.4-10.4); Monocytes 9 % (0-10); Neutrophil 72 % (42-75); Platelet Count 193 thou/uL (130-400); Platelet Morphology Comment Appears Adequate; RBC Distribution Width 12.5 % (11.5-14.5); Red Blood Cell (RBC) Count 4.16 mill/uL (4.20-5.40); White Blood Cell (WBC) Count 14.1 thou/uL (4.8-10.8)
[2018-05-07] MEDS: Lisinopril 20 MG TAB PO SCH (07:27)
[2018-05-07] MEDS: Pantoprazole 40 MG VIAL IVP SCH (07:27)
[2018-05-07] MEDS: Amlodipine 10 MG TAB PO SCH (07:28)
[2018-05-07] MEDS: Metoprolol Tartrate 50 MG TAB PO SCH (07:28)
[2018-05-07] MEDS: Docusate Sodium 100 MG/10 ML UDCUP PO SCH ×2 (07:28→22:19)
--- NOTE | 2018-05-07 08:15 | PRG ---
DATE OF SERVICE: 05/07/2018 SUBJECTIVE: This patient's clinical situation is unchanged overnight. OBJECTIVE: VITAL SIGNS: Her temperature is 99.0 with no fever in the last 24 hours, pulse 94, blood pressure 120/72. A 24-hour intake 3157, output 2263. Weight is 169 pounds. NEUROLOGIC: She will not respond to voice commands. She seems fairly hemiparetic on the right. She does have a weak cough. HEENT: Remarkable for right nostril Dobhoff tube. NECK: No JVD. LUNGS: Coarse breath sounds. CARDIAC: S1, S2. Regular. ABDOMEN: Soft. EXTREMITIES: Trace edema. LABORATORY DATA: White blood cell count 14.1, hemoglobin 12, hematocrit 37.7, and platelet count 193. Sodium 133, potassium 4.8, chloride 98, CO2 of 25, BUN 41, creatinine 1.3, glucose 223. X-RAY STUDIES: Chest x-ray from yesterday did not show any acute findings that I can see. ASSESSMENT: 1. Intraparenchymal brain hemorrhage with intraventricular extension and subsequent hydrocephalus. The patient has an EVD in place and is now postoperative day number 9. 2. Encephalopathy. 3. Systemic inflammatory response, which appears to be stable. PLAN: For the time being, the best we can do is supportive care. The patient remains on Ancef, which I think is probably prophylaxis for the EVD in place. She is not on broader spectrum antibiotics at this time. My feeling is that the fever two days ago was probably from the intraparenchymal brain hemorrhage. The patient is receiving nutritional support. She is receiving a mild sliding scale insulin along with Lantus coverage. The Lantus may need to be increased by the hospitalist team. The patient's prognosis seems quite poor. Job ID: [id number]
[2018-05-07] MEDS: Scopolamine 1.5 mg/72 hour Patch TD SCH (12:01)
--- NOTE | 2018-05-07 17:08 | PDOC.PN ---
- Subjective Encounter Start Date: 05/07/18 Encounter Start Time: 16:15 Patient not responsive to stimuli. - Objective Resuscitation Status - Order Detail: 05/02/18 12:59 Resuscitation Status Routine Resuscitation Status: PRTL: Cardiac only Discussed with: clover Oliva. Additional comments: No intubation Vital Signs & Weight: Vital Signs (12 hours) Temp Pulse Pulse BP BP Pulse Ox Pulse Ox 05/07/18 16:40 98 05/07/18 11:20 80 80 163/83 H 136/74 100 05/07/18 11:00 97.7 F 05/07/18 08:00 100 05/07/18 07:00 98.2 F Pulse Ox 05/07/18 16:40 05/07/18 11:20 96 05/07/18 11:00 05/07/18 08:00 05/07/18 07:00 Weight Admit Weight 171 lb 4 oz Weight 169 lb 1.513 oz Most Recent Monitor Data Heart Rate from ECG 84 NIBP 144/76 NIBP BP-Mean 98 Respiration from ECG 21 SpO2 98 I&O: 05/06/18 05/07/18 05/08/18 06:59 06:59 06:59 Intake Total 4020 3157 330 Output Total 2136 2263 504 Balance 1884 894 -174 Result Diagrams: 05/07/18 05:24 05/07/18 05:24 Additional Labs: Accuchecks 05/07/18 05/06/18 04:04 21:09 POC Glucose 222 H 220 H Phys Exam - Physical Examination Constitutional: NAD Supine in bed. EVD in place. Large volume of fluid in drain bag. No distress. Respiratory: no wheezing, no rales, no rhonchi, clear to auscultation bilateral Cardiovascular: RRR II/ murmur. Gastrointestinal: soft, no distention Musculoskeletal: no edema Deviation from normal: Not responsive. Dx/Plan (1) Encephalopathy acute Code(s): G93.40 - ENCEPHALOPATHY, UNSPECIFIED Status: Acute (2) Intracranial hemorrhage Code(s): I62.9 - NONTRAUMATIC INTRACRANIAL HEMORRHAGE, UNSPECIFIED Status: Acute Comment: Associated with infarct.. (3) CKD (chronic kidney disease) stage 3, GFR 30-59 ml/min Code(s): N18.3 - CHRONIC KIDNEY DISEASE, STAGE 3 (MODERATE) Status: Chronic (4) Diabetes type 2, controlled Code(s): E11.9 - TYPE 2 DIABETES MELLITUS WITHOUT COMPLICATIONS Status: Chronic Qualifiers: Diabetes mellitus local intermodal truck driver insulin use: unspecified senior living insulin use status Diabetes mellitus complication status: with unspecified complications Qualified Code(s): E11.8 - Type 2 diabetes mellitus with unspecified complications (5) Dyslipidemia Code(s): E78.5 - HYPERLIPIDEMIA, UNSPECIFIED Status: Chronic (6) Hypertension Code(s): I10 - ESSENTIAL (PRIMARY) HYPERTENSION Status: Chronic Qualifiers: Hypertension type: essential hypertension Qualified Code(s): I10 - Essential (primary) hypertension - Plan * Generally stable, but looks like poor prognosis for meaningful improvement. * Continue supportive care. * Neurosurg managing primary medical issue - the intracranial bleed. * Will increase the Lantus as blood sugars running consistently over 200.
[2018-05-07] MEDS: Sodium Chloride 0.45% 1,000 ML IV SCH (18:18)
[2018-05-07] MEDS: Rosuvastatin 20 MG TAB PO SCH (22:20)
[2018-05-07] MEDS: Insulin Glargine 15 UNITS in Pre-Filled Syringe 1 EACH SC SCH (22:26)
[2018-05-08] MEDS: CEFAZOLIN 2 GM/50 ML-DEXTROSE 2 GM in Premix Bag 1 BAG IVPB SCH ×3 (05:37→22:09)
[2018-05-08] MEDS: HumaLOG 300 UNITS/3 ML VIAL SC PRN ×2 (05:38→12:31)
[2018-05-08 07:52] LABS: Hemoglobin 13.3 g/dL (12.0-16.0); Mean Corpuscular HGB CONC 34.4 g/dL (32.0-36.0); Mean Corpuscular Hemoglobin 30.4 pg (27.0-31.0); Mean Corpuscular Volume 88.3 fL (78.0-98.0); Platelet Count 175 thou/uL (130-400); RBC Distribution Width 12.4 % (11.5-14.5); Red Blood Cell (RBC) Count 4.37 mill/uL (4.20-5.40)
[2018-05-08 08:09] LABS: Anion Gap 18 mmol/L (10-20); BUN (Urea Nitrogen) 42 mg/dL (9.8-20.1); Calc. Creatinine Clearance 36 mL/min (70-130); Calcium 9.9 mg/dL (7.8-10.44); Carbon Dioxide 25 mmol/L (23-31); Chloride 95 mmol/L (98-107); Estimated GFR-MDRD 43; Glucose 180 mg/dL (83-110); Phosphorus 2.7 mg/dL (2.3-4.7); Potassium 5.7 mmol/L (3.5-5.1); Sodium 132 mmol/L (136-145)
[2018-05-08] MEDS: Amlodipine 10 MG TAB PO SCH (08:56)
[2018-05-08] MEDS: Lisinopril 20 MG TAB PO SCH (08:56)
[2018-05-08] MEDS: Metoprolol Tartrate 50 MG TAB PO SCH (08:56)
[2018-05-08] MEDS: Pantoprazole 40 MG VIAL IVP SCH (08:57)
[2018-05-08 09:00] LABS: Eosinophils 2 % (0-10); Lymphocytes 2 % (21-51); MDiff Complete? YES; Mean Platelet Volume 9.5 fL (7.4-10.4); Monocytes 9 % (0-10); Neutrophil 82 % (42-75); Platelet Morphology Comment Appears Adequate; Reactive Lymphocytes 5 % (0-10); White Blood Cell (WBC) Count 20.2 thou/uL (4.8-10.8)
--- NOTE | 2018-05-08 09:12 | PRG ---
DATE OF SERVICE: 05/08/2018 SUBJECTIVE: Jaycee Mccauley remains in the ICU with a ventriculostomy in place. OBJECTIVE: VITAL SIGNS: Sats are 100% on room air, blood pressure 110/50, pulse 80, respiratory rate 18. GENERAL: She is having bouts of apnea. CHEST: Reveals anterior rhonchi, but from secretions. CARDIAC: Normal S1, S2. No gallops. ABDOMEN: No masses. LABORATORY DATA: White count 4000. Creatinine 1.3. IMPRESSION: Intracerebral hemorrhage. Respiratory failure. Routine secretions. Advanced age. PLAN: Overall prognosis is grave. Family wants ongoing ICU care, but does not want to be intubated. But, we will continue to follow while in the ICU. Job ID: [id number]
--- NOTE | 2018-05-08 11:55 | PRG ---
DATE OF SERVICE: 05/08/2018 SUBJECTIVE: Ms. Mccauley's clinical status is unchanged. This morning, the EVD became displaced and fell out. We will not replace the EVD at this time. Hopefully, she no longer needs it, and in addition, her prognosis for meaningful recovery is quite poor and the family is considering ongoing aggressiveness of level of care. No family is available at the bedside currently. Job ID: [id number]
[2018-05-08] MEDS: Docusate Sodium 100 MG/10 ML UDCUP PO SCH ×2 (12:24→22:08)
--- NOTE | 2018-05-08 13:35 | PDOC.PN ---
- Subjective Encounter Start Date: 05/08/18 Encounter Start Time: 09:00 No change. Non-verbal. - Objective Resuscitation Status - Order Detail: 05/02/18 12:59 Resuscitation Status Routine Resuscitation Status: PRTL: Cardiac only Discussed with: Pat & clover Syed. Additional comments: No intubation Vital Signs & Weight: Vital Signs (12 hours) Temp Pulse Pulse BP BP Pulse Ox Pulse Ox 05/08/18 12:35 94 96 167/71 H 154/84 H 97 05/08/18 12:00 97 F L 05/08/18 09:40 97.6 F 05/08/18 07:23 100 05/08/18 04:00 98.0 F Pulse Ox 05/08/18 12:35 99 05/08/18 12:00 05/08/18 09:40 05/08/18 07:23 05/08/18 04:00 Weight Admit Weight 171 lb 4 oz Weight 171 lb 4.787 oz Most Recent Monitor Data Heart Rate from ECG 98 NIBP 154/84 NIBP BP-Mean 107 Respiration from ECG 21 SpO2 97 I&O: 05/07/18 05/08/18 05/09/18 06:59 06:59 06:59 Intake Total 3157 3416 120 Output Total 2263 1678 230 Balance 894 1738 -110 Result Diagrams: 05/08/18 07:31 05/08/18 07:31 Additional Labs: Accuchecks 05/08/18 05/08/18 05/07/18 11:09 04:38 20:52 POC Glucose 239 H 159 H 226 H 05/07/18 18:18 POC Glucose 230 H Phys Exam - Physical Examination Constitutional: NAD Respiratory: no wheezing, no rales Upper tracheal secretions and rhonchi. Cardiovascular: RRR, no significant murmur Gastrointestinal: soft, non-tender, no distention Musculoskeletal: no edema Modest movement. Grimaces to suction, but no gag. Moves LUE spontaneously modestly. Dx/Plan (1) Intracranial hemorrhage Code(s): I62.9 - NONTRAUMATIC INTRACRANIAL HEMORRHAGE, UNSPECIFIED Status: Acute Comment: Associated with infarct.. (2) Cerebellar infarction Code(s): I63.9 - CEREBRAL INFARCTION, UNSPECIFIED Status: Acute (3) Encephalopathy acute Code(s): G93.40 - ENCEPHALOPATHY, UNSPECIFIED Status: Acute (4) CKD (chronic kidney disease) stage 3, GFR 30-59 ml/min Code(s): N18.3 - CHRONIC KIDNEY DISEASE, STAGE 3 (MODERATE) Status: Chronic (5) Diabetes type 2, controlled Code(s): E11.9 - TYPE 2 DIABETES MELLITUS WITHOUT COMPLICATIONS Status: Chronic Qualifiers: Diabetes mellitus skilled nursing insulin use: unspecified watermelon harvesting supervisor insulin use status Diabetes mellitus complication status: with unspecified complications Qualified Code(s): E11.8 - Type 2 diabetes mellitus with unspecified complications (6) Dyslipidemia Code(s): E78.5 - HYPERLIPIDEMIA, UNSPECIFIED Status: Chronic Comment: statin (7) Hypertension Code(s): I10 - ESSENTIAL (PRIMARY) HYPERTENSION Status: Chronic Qualifiers: Hypertension type: essential hypertension Qualified Code(s): I10 - Essential (primary) hypertension Comment: desmond Armas. - Plan * EVD in place, managed by neurosurg. * Has fluids, feeds. * Continuing supportive care. * Prognosis remains poor.
--- NOTE | 2018-05-08 14:46 | RAD ---
PORTABLE AP ABDOMINAL RADIOGRAPH: DATE: 05/08/2018. History Placement of a nasogastric tube. COMPARISON: 04/27/2018. FINDINGS: Dobbhoff feeding tube is noted in place which demonstrates tortuosity overlying the mediastinum with the distal portion overlying the left upper quadrant and the Dobbhoff feeding tube is coiled overlyin g the expected location of the gastric fundus. A small to moderate amount of retained fecal material is seen within the colon. The bowel gas pattern is otherwise nonspecific. Visualized lung bases ar e clear. IMPRESSION: Repositioning of the Dobbhoff feeding tube, but the Dobbhoff feeding tube is coiled overlying the lef t upper quadrant with the tip overlying the expected location of the gastric fundus/gastric cardia. POS: HAYDEN
--- NOTE | 2018-05-08 16:46 | RAD ---
ABDOMEN ONE VIEW: 05/08/18 HISTORY: 87-year-old female with history of Dobhoff tube placement confirmation. There is a Dobhoff tube in place with the tip extending into the region of the body of the stomach. T here appears to be some motion artifact at the level of the upper stomach giving a somewhat ghosting appearance to the Dobhoff tube. I do not think that this represents significant coiling, although it is conceivable it could be somewhat coiled back on itself. IMPRESSION: Some motion artifact at the level of the hemidiaphragms which gives a somewhat ghosting type appearan ce to the distal Dobhoff tube. If there is clinical concern that this tube is still somewhat coiled b ack on itself, then I would suggest a followup study to include some of the lower chest. POS: HAYDEN
[2018-05-08] MEDS: Sodium Chloride 0.45% 1,000 ML IV SCH (17:42)
--- NOTE | 2018-05-08 20:59 | RAD ---
ABDOMEN ONE VIEW: 05/08/18 HISTORY: 87-year-old female to evaluate for Dobhoff tube position. Comparison made to 05/08/18 study, 4/:25 p.m. The Dobhoff tube has been advanced and now is within the region of the distal stomach or possibly the duodenal bulb. IMPRESSION: Dobhoff tube with the tip extending into the distal antrum or possibly the duodenal bulb region. POS: HAYDEN
[2018-05-08] MEDS: Insulin Glargine 15 UNITS in Pre-Filled Syringe 1 EACH SC SCH (22:08)
[2018-05-08] MEDS: Rosuvastatin 20 MG TAB PO SCH (22:09)
[2018-05-08] MEDS: Labetalol HCl 100 MG/20 ML VIAL SLOW IVP PRN (22:23)
[2018-05-09] MEDS: Labetalol HCl 100 MG/20 ML VIAL SLOW IVP PRN ×2 (00:14→09:09)
[2018-05-09] MEDS: CEFAZOLIN 2 GM/50 ML-DEXTROSE 2 GM in Premix Bag 1 BAG IVPB SCH (05:12)
[2018-05-09] MEDS: HumaLOG 300 UNITS/3 ML VIAL SC PRN ×4 (05:12→21:16)
[2018-05-09 07:36] LABS: Anion Gap 16 mmol/L (10-20); BUN (Urea Nitrogen) 38 mg/dL (9.8-20.1); Calc. Creatinine Clearance 38 mL/min (70-130); Calcium 9.7 mg/dL (7.8-10.44); Carbon Dioxide 23 mmol/L (23-31); Chloride 95 mmol/L (98-107); Estimated GFR-MDRD 45; Glucose 246 mg/dL (83-110); Phosphorus 2.9 mg/dL (2.3-4.7); Potassium 4.8 mmol/L (3.5-5.1); Sodium 129 mmol/L (136-145)
[2018-05-09 07:44] LABS: Hemoglobin 12.8 g/dL (12.0-16.0); Mean Corpuscular HGB CONC 31.8 g/dL (32.0-36.0); Mean Corpuscular Volume 88.1 fL (78.0-98.0); Mean Platelet Volume 9.2 fL (7.4-10.4); Platelet Count 180 thou/uL (130-400); RBC Distribution Width 12.3 % (11.5-14.5); Red Blood Cell (RBC) Count 4.58 mill/uL (4.20-5.40); White Blood Cell (WBC) Count 17.9 thou/uL (4.8-10.8)
[2018-05-09 08:00] LABS: Band 6 % (5-11); Lymphocytes 6 % (21-51); MDiff Complete? YES; Monocytes 7 % (0-10); Neutrophil 80 % (42-75); Platelet Morphology Comment Appears Adequate; Polychromasia SLIGHT = 2-3 cells (100X) (0-2/hpf); Reactive Lymphocytes 1 % (0-10); Vacuoles SLIGHT
--- NOTE | 2018-05-09 08:26 | PRG ---
DATE OF SERVICE: 05/09/2018 SUBJECTIVE: This morning, she is less responsive, agonal respirations. OBJECTIVE: VITAL SIGNS: Temperature is 99.2, blood pressure 151/ 67, respiratory rate 18, and sats 95%. CHEST: Extensive rhonchi and crackles. CARDIAC: Normal S1 and S2. No gallops. ABDOMEN: No mass. LABORATORY DATA: White count 170,000 and H and H 12 and 40, and platelet count is normal. Creatinine 1.34 and sodium 129. Several x-rays of her abdomen were ordered by primary care physician. Dobhoff in adequate position. IMPRESSION: 1. Status post intracranial hemorrhage. 2. Respiratory failure. 3. Renal failure. PLAN: Her intraventricular drain device was removed by the patient. We will discontinue antibiotics at this date. Supportive care. PROGNOSIS: Grave. Discussed with family. She can probably be transferred out of the ICU. Job ID: [id number]
[2018-05-09] MEDS: Docusate Sodium 100 MG/10 ML UDCUP PO SCH ×2 (08:49→21:05)
[2018-05-09] MEDS: Pantoprazole 40 MG VIAL IVP SCH (08:49)
[2018-05-09] MEDS: Lisinopril 20 MG TAB PO SCH (08:49)
[2018-05-09] MEDS: Amlodipine 10 MG TAB PO SCH (08:49)
[2018-05-09] MEDS: Metoprolol Tartrate 50 MG TAB PO SCH (08:50)
[2018-05-09] MEDS: Sodium Chloride 0.45% 1,000 ML IV SCH ×2 (09:13→15:16)
--- NOTE | 2018-05-09 13:56 | PDOC.PN ---
- Subjective Encounter Start Date: 05/09/18 Encounter Start Time: 13:30 Patient is non-verbal. Family in the room. Was transferred out of the ICU to floor bed today. Patient was made DNAR (see palliative care team notes). EVD clotted and was removed. - Objective Resuscitation Status - Order Detail: 05/09/18 11:06 Resuscitation Status Routine Resuscitation Status: DNAR: NO Resuscitation Discussed with: WITH DAUGHTERS Vital Signs & Weight: Vital Signs (12 hours) Temp Pulse Resp BP BP Pulse Ox 05/09/18 12:15 98.3 F 74 15 136/72 98 05/09/18 12:00 97.8 F 05/09/18 09:09 74 175/78 H 05/09/18 08:49 78 159/79 H 05/09/18 08:00 99.0 F 99 05/09/18 07:00 99.2 F 05/09/18 04:00 100.0 F H Weight Admit Weight 171 lb 4 oz Weight 177 lb 11.081 oz Most Recent Monitor Data Heart Rate from ECG 94 NIBP 134/58 NIBP BP-Mean 88 Respiration from ECG 18 SpO2 99 I&O: 05/08/18 05/09/18 05/10/18 06:59 06:59 06:59 Intake Total 3416 2658 693 Output Total 1678 2030 250 Balance 1738 628 443 Result Diagrams: 05/09/18 07:08 05/09/18 07:08 Additional Labs: Accuchecks 05/09/18 05/09/18 05/08/18 09:58 05:08 20:23 POC Glucose 211 H 277 H 190 H 05/08/18 05/07/18 16:35 11:05 POC Glucose 154 H 249 H Phys Exam - Physical Examination Constitutional: NAD Non-verbal. No responsive to external stim. except grimace to noxious stim Loud upper airway secretion noise. Cardiovascular: RRR, no significant murmur Gastrointestinal: soft, no distention, positive bowel sounds Musculoskeletal: no edema Dx/Plan (1) Intracranial hemorrhage Code(s): I62.9 - NONTRAUMATIC INTRACRANIAL HEMORRHAGE, UNSPECIFIED Status: Acute Comment: Associated with infarct.. (2) Cerebellar infarction Code(s): I63.9 - CEREBRAL INFARCTION, UNSPECIFIED Status: Acute (3) Encephalopathy acute Code(s): G93.40 - ENCEPHALOPATHY, UNSPECIFIED Status: Acute (4) CKD (chronic kidney disease) stage 3, GFR 30-59 ml/min Code(s): N18.3 - CHRONIC KIDNEY DISEASE, STAGE 3 (MODERATE) Status: Chronic (5) Diabetes type 2, controlled Code(s): E11.9 - TYPE 2 DIABETES MELLITUS WITHOUT COMPLICATIONS Status: Chronic Qualifiers: Diabetes mellitus intermodal customer service insulin use: unspecified assisted insulin use status Diabetes mellitus complication status: with unspecified complications Qualified Code(s): E11.8 - Type 2 diabetes mellitus with unspecified complications (6) Dyslipidemia Code(s): E78.5 - HYPERLIPIDEMIA, UNSPECIFIED Status: Chronic Comment: statin (7) Hypertension Code(s): I10 - ESSENTIAL (PRIMARY) HYPERTENSION Status: Chronic Qualifiers: Hypertension type: essential hypertension Qualified Code(s): I10 - Essential (primary) hypertension Comment: desmond Armas. - Plan * Patient's prognosis is very poor. She did not improve with the EVD drain. Neurologically still profoundly debilitated. * EVD occluded and was DC'd. No other curative options. * Patient was made DNAR by a majority decision of the children. Palliative talking to the family about Hospice. That is appropriate at this point. * No other specific medical issues to address. Continuing IVF, enteral feeds and empiric abx. * Discussed with patient's family, but I am not convinced my attempts to explain things was as effective as I would like for it to be. One daughter continued to act frustrated and cut me off several times, but I may be misreading that situation. Other daughter appeared comfortable with the situation and explanation.
[2018-05-09] MEDS: Rosuvastatin 20 MG TAB PO SCH (21:04)
[2018-05-09] MEDS: Insulin Glargine 15 UNITS in Pre-Filled Syringe 1 EACH SC SCH (21:06)
[2018-05-10] MEDS: HumaLOG 300 UNITS/3 ML VIAL SC PRN ×3 (06:03→17:53)
[2018-05-10 07:08] LABS: Hemoglobin 10.8 g/dL (12.0-16.0); Mean Corpuscular HGB CONC 32.6 g/dL (32.0-36.0); Mean Corpuscular Hemoglobin 29.1 pg (27.0-31.0); Mean Corpuscular Volume 89.1 fL (78.0-98.0); Mean Platelet Volume 9.2 fL (7.4-10.4); Platelet Count 223 thou/uL (130-400); RBC Distribution Width 12.4 % (11.5-14.5); Red Blood Cell (RBC) Count 3.73 mill/uL (4.20-5.40); White Blood Cell (WBC) Count 16.8 thou/uL (4.8-10.8)
[2018-05-10 07:12] LABS: Anion Gap 14 mmol/L (10-20); BUN (Urea Nitrogen) 39 mg/dL (9.8-20.1); Calc. Creatinine Clearance 42 mL/min (70-130); Calcium 9.8 mg/dL (7.8-10.44); Carbon Dioxide 24 mmol/L (23-31); Chloride 95 mmol/L (98-107); Estimated GFR-MDRD 48; Glucose 214 mg/dL (83-110); Magnesium 1.9 mg/dL (1.6-2.6); Potassium 4.3 mmol/L (3.5-5.1); Sodium 129 mmol/L (136-145)
[2018-05-10 07:25] LABS: Phosphorus 2.3 mg/dL (2.3-4.7)
--- NOTE | 2018-05-10 08:57 | PRG ---
DATE OF SERVICE: 05/10/2018 SUBJECTIVE: This morning, agonal respirations. OBJECTIVE: VITAL SIGNS: Sats are 94% on room air, respiratory rate 18, temperature 99, and blood pressure 130/76. CHEST: Decreased breath sounds. No wheezing. CARDIAC: Normal S1 and S2. No gallops. ABDOMEN: No masses. LABORATORY DATA: Creatinine 1.28. White count 16,000. IMPRESSION: Terminal respiratory failure and cerebrovascular accident. PLAN: I would discontinue daily lab on the patient. I probably would discontinue all medication if it is okay with family. Comfort care. Job ID: [id number]
[2018-05-10 09:20] LABS: Band 4 % (5-11); Lymphocytes 4 % (21-51); MDiff Complete? YES; Monocytes 5 % (0-10); Neutrophil 86 % (42-75); Platelet Morphology Comment Appears Adequate; Polychromasia SLIGHT = 2-3 cells (100X) (0-2/hpf); Reactive Lymphocytes 1 % (0-10)
[2018-05-10] MEDS: Docusate Sodium 100 MG/10 ML UDCUP PO SCH ×2 (09:26→20:55)
[2018-05-10] MEDS: Pantoprazole 40 MG VIAL IVP SCH (09:26)
[2018-05-10] MEDS: Lisinopril 20 MG TAB PO SCH (09:26)
[2018-05-10] MEDS: Metoprolol Tartrate 50 MG TAB PO SCH (09:26)
[2018-05-10] MEDS: Amlodipine 10 MG TAB PO SCH (09:27)
[2018-05-10] MEDS: Scopolamine 1.5 mg/72 hour Patch TD SCH (09:38)
[2018-05-10 16:10] VITALS: BMI 28.1
--- NOTE | 2018-05-10 20:06 | PDOC.PN ---
- Subjective Encounter Start Date: 05/10/18 Encounter Start Time: 09:30 Non-verbal. Oldest daughter in the room with her. - Objective Resuscitation Status - Order Detail: 05/09/18 11:06 Resuscitation Status Routine Resuscitation Status: DNAR: NO Resuscitation Discussed with: WITH DAUGHTERS Vital Signs & Weight: Vital Signs (12 hours) Temp Pulse Resp BP BP Pulse Ox 05/10/18 16:01 100.4 F H 90 18 135/76 92 L 05/10/18 11:09 97.2 F L 80 18 158/85 H 95 05/10/18 09:27 99 130/76 05/10/18 09:26 130/76 Weight Admit Weight 171 lb 4 oz Weight 186 lb Most Recent Monitor Data Heart Rate from ECG 94 NIBP 134/58 NIBP BP-Mean 88 Respiration from ECG 18 SpO2 99 I&O: 05/09/18 05/10/18 05/11/18 06:59 06:59 06:59 Intake Total 2658 2791 742 Output Total 2030 1850 700 Balance 628 941 42 Result Diagrams: 05/10/18 06:39 05/10/18 06:39 Additional Labs: Accuchecks 05/10/18 05/10/18 05/10/18 16:05 11:09 05:55 POC Glucose 195 H 198 H 228 H 05/09/18 19:59 POC Glucose 223 H Phys Exam - Physical Examination Constitutional: NAD Supine in bed. Loud rales. No interaction. Eyes closed. Upper airway secretions causing loud rales. Cardiovascular: RRR II/ Gastrointestinal: soft, no distention Musculoskeletal: no edema Will occ move UE's spont. Will WD to pain. Grimaces when disturbed. Skin: normal turgor Dx/Plan (1) Intracranial hemorrhage Code(s): I62.9 - NONTRAUMATIC INTRACRANIAL HEMORRHAGE, UNSPECIFIED Status: Acute Comment: Associated with infarct.. (2) Cerebellar infarction Code(s): I63.9 - CEREBRAL INFARCTION, UNSPECIFIED Status: Acute (3) Encephalopathy acute Code(s): G93.40 - ENCEPHALOPATHY, UNSPECIFIED Status: Acute (4) CKD (chronic kidney disease) stage 3, GFR 30-59 ml/min Code(s): N18.3 - CHRONIC KIDNEY DISEASE, STAGE 3 (MODERATE) Status: Chronic (5) Diabetes type 2, controlled Code(s): E11.9 - TYPE 2 DIABETES MELLITUS WITHOUT COMPLICATIONS Status: Chronic Qualifiers: Diabetes mellitus rat exterminator insulin use: unspecified rat exterminator insulin use status Diabetes mellitus complication status: with unspecified complications Qualified Code(s): E11.8 - Type 2 diabetes mellitus with unspecified complications (6) Dyslipidemia Code(s): E78.5 - HYPERLIPIDEMIA, UNSPECIFIED Status: Chronic Comment: statin (7) Hypertension Code(s): I10 - ESSENTIAL (PRIMARY) HYPERTENSION Status: Chronic Qualifiers: Hypertension type: essential hypertension Qualified Code(s): I10 - Essential (primary) hypertension Comment: Z[place] lopressor. - Plan * Discussed with hospice. She is not a candidate for IP services as she does not have an active, uncontrolled symptom to merit the IP aspect. Will continue to monitor. * Asked pile driving nozzleman to reassess the patient to determine current needs. Will follow recs. * Has DHT. Family has indicated they do not want PEG. * Explained to patient's oldest daughter that the DHT will eventually cause sinus infection if it remains in place. Will need to consider risking that v PEG v removal. * Low grade fever this evening. May be aspiration. Cannot protect airway. Check labs, cultures and CXR.
[2018-05-10] MEDS: Rosuvastatin 20 MG TAB PO SCH (20:55)
[2018-05-10] MEDS: Insulin Glargine 15 UNITS in Pre-Filled Syringe 1 EACH SC SCH (21:05)
[2018-05-10 21:12] LABS: Bilirubin Negative (Negative); Blood, Urine Small (Negative); Clarity CLOUDY (Clear); Glucose, Urine (Dipstick) Negative (Negative); Leukocyte Negative (Negative); Nitrite Negative (Negative); Protein, Urine (Dipstick) 100 mg/dL (Neg-Trace); Specific Gravity, Urine 1.016 (1.002-1.036); pH, Urine 5.5 (5.0-9.0)
[2018-05-10 21:14] LABS: Bacteria/HPF None Seen HPF (None Seen); Hyaline Casts/LPF 4-6 HYALINE CAST LPF (0-3 Hyaline); Pathc Cast-AUWi Flag 1.16 (0-2.49)
[2018-05-11 08:42] LABS: Mean Corpuscular HGB CONC 31.9 g/dL (32.0-36.0); Mean Corpuscular Hemoglobin 28.5 pg (27.0-31.0); Mean Corpuscular Volume 89.3 fL (78.0-98.0); Mean Platelet Volume 8.8 fL (7.4-10.4); Platelet Count 235 thou/uL (130-400); RBC Distribution Width 12.3 % (11.5-14.5); Red Blood Cell (RBC) Count 3.87 mill/uL (4.20-5.40)
--- NOTE | 2018-05-11 08:50 | RAD ---
CHEST 1 VIEW: HISTORY: Dyspnea. Followup. COMPARISON: 05/06/2018. FINDINGS: Cardiac silhouette is magnified by projection. Pulmonary vasculature is upper limits of normal. The patient is slightly rotated rightward. Feeding tube descends to the abdomen. Ill-defined parenchymal infiltrate now projects over the left posterolateral lung base. No evidence of pneumothorax. IMPRESSION: Developing left basilar infiltrate. Clinical correlation regarding other signs and symptoms of left basilar pneumonitis is required. Please consider continued radiographic followup to evaluate for francesco bar. POS: HAYDEN
[2018-05-11 08:59] LABS: ALT (SGPT) 12 U/L (8-55); AST (SGOT) 37 U/L (5-34); Albumin 2.9 g/dL (3.4-4.8); Alkaline Phosphatase 101 U/L (40-150); Anion Gap 15 mmol/L (10-20); BUN (Urea Nitrogen) 44 mg/dL (9.8-20.1); Bilirubin, Total 0.2 mg/dL (0.2-1.2); Calc. Creatinine Clearance 37 mL/min (70-130); Calcium 9.9 mg/dL (7.8-10.44); Carbon Dioxide 28 mmol/L (23-31); Chloride 96 mmol/L (98-107); Estimated GFR-MDRD 41; Globulin 3.7 g/dL (2.4-3.5); Glucose 237 mg/dL (83-110); Potassium 4.6 mmol/L (3.5-5.1); Protein, Total 6.6 g/dL (6.0-8.3); Sodium 134 mmol/L (136-145)
--- NOTE | 2018-05-11 09:01 | PRG ---
DATE OF SERVICE: SUBJECTIVE: This morning remains still unresponsive, agonal respiration, audible rhonchi. OBJECTIVE: VITAL SIGNS: Temperature is 98, pulse 101, respiratory rate 18, sats are 95%, surprisingly on room air, blood pressure 135/72. CHEST: Anterior rhonchi. CARDIAC: Normal S1, S2. No gallops. ABDOMEN: No masses. IMPRESSION: Terminal respiratory failure. DNR. Discontinue all medication. Comfort care. Job ID: [id number]
[2018-05-11 09:14] LABS: Band 1 % (5-11); Lymphocytes 7 % (21-51); MDiff Complete? YES; Monocytes 5 % (0-10); Neutrophil 87 % (42-75); RBC Morphology Normal
[2018-05-11] MEDS: Pantoprazole 40 MG VIAL IVP SCH (09:51)
[2018-05-11] MEDS: Amlodipine 10 MG TAB PO SCH (09:52)
[2018-05-11] MEDS: Lisinopril 20 MG TAB PO SCH (09:52)
[2018-05-11] MEDS: Metoprolol Tartrate 50 MG TAB PO SCH (09:52)
[2018-05-11] MEDS: Docusate Sodium 100 MG/10 ML UDCUP PO SCH (09:53)
[2018-05-11] MEDS ORDERED: Morphine 4 MG/ML VIAL SLOW IVP PRN (10:43)
--- NOTE | 2018-05-11 11:41 | PRG ---
DATE OF SERVICE: 05/11/2018 SUBJECTIVE: The patient is nonverbal. Her daughter, Pat, is at the bedside. OBJECTIVE: VITAL SIGNS: Temperature 98.8, pulse 100, blood pressure 135/72, respirations 18, and 95% on room air. GENERAL APPEARANCE: The patient is supine on hospital bed. She does move spontaneously bilaterally. She moves her head about. She actually open her eyes a bit today. She does not make eye contact or significantly interact. She does withdrawal to noxious stimuli and will move her head and close her eyes with any attempt to shine a light in her pupils. ENT: The patient has a Dobhoff tube in place in left naris. HEART: Tachy, regular. No murmurs. LUNGS: Clear with some upper airway noise, but it is much improved from yesterday. ABDOMEN: Soft, nontender, and nondistended. EXTREMITIES: No edema. LABORATORY DATA: White count 17.0, hemoglobin 11.0, platelets 235. Sodium 134, potassium 4.6, chloride 96, CO2 of 28, BUN 44, creatinine 1.45, and glucose 237. Urinalysis largely unremarkable. Chest x-ray possibly showing some left lower lobe infiltrate. IMPRESSION AND PLAN: Large intracerebral hemorrhage associated with cerebral infarct. The patient's prognosis for recovery is extremely poor. She is having some variations in her respiratory pattern with occasional pauses. She is not currently agonal. Her vital signs otherwise remain largely stable except for some borderline tachycardia. The patient had been on beta blockers. Those were ordered. Unsure what she is getting given that she is only getting the Dobhoff tube. She has been made comfort care only, which I have finally been able to fully confirm with her daughter, Pat. I explained at length that we will no longer be checking labs or doing any workup and if anything goes poorly, we will simply be managing it symptomatically for comfort. We also discussed the Dobhoff tube and fluids. The patient is going to eventually get some sinusitis related to the Dobhoff tube, so we will have to make a decision to take it out, allow infection or if the patient is going to be a longer-term survivor, then we will need to consider even PEG tube placement if it comes to that. The family has been clear that they did not want a PEG tube, so that is likely not even a consideration at this point. In the interim, we will continue the Dobhoff tube feedings and the fluids. We will treat her diabetes with sliding scale and continue to follow. If she does develop instability of symptoms or vital signs, it may be appropriate for inpatient hospice. The patient can be transferred to that facility at that time. Job ID: [id number]
[2018-05-11] MEDS: HumaLOG 300 UNITS/3 ML VIAL SC PRN (13:20)
[2018-05-11 16:52] VITALS: BP 130/76; TEMP 99.5
--- NOTE | 2018-05-14 09:47 | OP ---
DATE OF PROCEDURE: 04/28/2018 DESCRIPTION: External ventricular drain placement. INDICATION: Hydrocephalus and altered mental status. DESCRIPTION OF PROCEDURE: Yaniv's point was identified to the right frontal scalp. The area was sterilized and draped, and infiltrated with 2 mL of 1% lidocaine. A 15 blade scalpel was used to incise the skin down to the skull. A cranial twist drill was used to create a noris hole at this site. Blunt instrumentation was used to rodas the dura and an external ventricular catheter was placed to a depth of 6 cm with immediate egress of bloody CSF drain at 5 cm of water. The patient tolerated the procedure well with no complication. BLOOD LOSS: Minimal. Job ID: [id number]
--- NOTE | 2018-05-14 09:47 | DIS ---
DATE OF ADMISSION: 04/26/2018 DATE OF DISCHARGE: 05/11/2018 DISCHARGE DIAGNOSES: 1. Cerebellar cerebrovascular accident. 2. 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 3. Encephalopathy. 4. Acute renal insufficiency. 5. Diabetes mellitus. 6. Hypertension. 7. Acute respiratory failure, requiring supportive BiPAP. 8. History of hyperlipidemia. HISTORY OF PRESENT ILLNESS: The patient is an 87-year-old female with a history of prior CVA, who presented via the hospital when she developed acute encephalopathy. She initially had CT scan of the brain, which failed to reveal significant ischemic event. HOSPITAL COURSE: The patient was admitted to the neuro floor. Subsequent MRI of the brain indicated infarction of the cerebellum. She did not have significant change in her encephalopathy, but had some significant elevations in blood pressure and given the failure to improve in the blood pressure issues, she underwent a repeat CT scan which revealed significant hemorrhagic conversion of the ischemic CVA. Neurosurgery was subsequently consulted. The patient was moved to the ICU setting where she was also followed by Pulmonary Critical Care. The patient ultimately required an external ventricular drain placed by Neurosurgery because of the hemorrhage into the ventricular circulation causing some hydrocephalus. The patient's drain remained in place for several days with good drainage of bloody CSF. Unfortunately, the patient's neurological status did not improve. She remained encephalopathic. She had spontaneous movements, but was not interactive significantly. As the days passed and the patient felt improved, the external ventricular drain was accidentally pulled out by the patient and was replaced and this continued for several days. In the interim, her blood sugars were controlled. She spiked one low-grade fever and had some antibiotic coverage empirically. She had some respiratory issues requiring some BiPAP support and she also had Dobhoff tube placed for feeding purposes. The patient has, otherwise, remained relatively hemodynamically stable. However, the drain was eventually accidentally pulled again and it was felt by Neurosurgery at that time that the drain had done of the majority of the good that it could possibly benefit the patient and it was decided to leave the drain out. In the midst of all of this, the family consisting of multiple children of the patient had some struggles regarding the situation itself and had some disagreement overall on the approach to the patient, they were insistent making the patient do not resuscitate. Once the patient had the drain out, she was subsequently transferred to the medical floor. Palliative care worked extensively with the patient's family on a daily basis to help them work through decisions with the patient. Ultimately, when the patient failed to recover any ability to communicate or taking any nutrition, a decision was ultimately going to be needed regarding feeding options. Family was clear that they did not want a PEG tube for the patient. Therefore, the Dobhoff would be useful for limited time and family decided to pursue hospice. Inpatient hospice was consulted. However, the patient at that time was not felt to have a specific uncontrolled symptom requiring inpatient care. The patient's granddaughter will ultimately decide to take the patient to her home with hospice support. The palliative care team work with the family to get the [id number] DNR and ultimately felt comfortable with discharging the patient with the hospice care. Further management will be per the hospice team. Job ID: [id number]
== END 2018-05-11 18:44 | disposition hospice, inpatient (51) | DRG 23 ==
LOC: ERS 11:43 → 2SE 15:56 → CCU 04-27 13:51 → T4-B 05-09 12:42
PROVIDERS: ADMIT Internal Medicine; ATTEND Internal Medicine
PROC: 009630Z Drainage of Cerebral Ventricle with Drainage Device, Percutaneous Approach (ICD-10-PCS; principal; 2018-04-28)
PROC: 5A09357 Assistance with Respiratory Ventilation, Less than 24 Consecutive Hours, Continuous Positive Airway Pressure (ICD-10-PCS; 2018-05-02)
DX: I63.9 Cerebral infarction, unspecified (principal); I61.4 Nontraumatic intracerebral hemorrhage in cerebellum; J96.01 Acute respiratory failure with hypoxia; G93.5 Compression of brain; I61.5 Nontraumatic intracerebral hemorrhage, intraventricular; G93.40 Encephalopathy, unspecified; R65.10 Systemic inflammatory response syndrome (SIRS) of non-infectious origin without acute organ dysfunction; G91.9 Hydrocephalus, unspecified; G81.91 Hemiplegia, unspecified affecting right dominant side; E87.1 Hypo-osmolality and hyponatremia; Z51.5 Encounter for palliative care; Z66 Do not resuscitate; E78.5 Hyperlipidemia, unspecified; I16.0 Hypertensive urgency; I12.9 Hypertensive chronic kidney disease with stage 1 through stage 4 chronic kidney disease, or unspecified chronic kidney disease; E11.22 Type 2 diabetes mellitus with diabetic chronic kidney disease; N18.3 Chronic kidney disease, stage 3 (moderate); E83.39 Other disorders of phosphorus metabolism; Z86.73 Personal history of transient ischemic attack (TIA), and cerebral infarction without residual deficits; Z79.84 Long term (current) use of oral hypoglycemic drugs; Z79.82 Long term (current) use of aspirin; Z79.899 Other long term (current) drug therapy
CPT/HCPCS: 36415; 36416; 51701; 70450; 70496; 70498; 70551; 71045; 74018; 80048; 80053; 80061; 80306; 80307; 81003; 81015; 82553; 82805; 83605; 83735; 84100; 84484; 85025; 85610; 85730; 87040; 87086; 93005; 93306; 93970; 94660; A4353; C9113; G8978-GP-CN; G8979-GP-CK; G8987-GO-CM; G8988-GO-CJ; G8996-GN-CM; G8997-GN-CM; J0131; J0360; J1650; J2001; J2270; J2405; J7050; Q0162; S0028